=== PATIENT | female | born 1955 | race Caucasian/White ===

== ENCOUNTER 2020-03-23 08:47 | Inpatient (IN) | payer MEDICARE, OTHER ==
[2020-03-20 11:51] LABS: BASOPHILS % 0.7 % (0.0-1.0); EOSINOPHILS # (AUTO) 0.1 (0.0-0.4); EOSINOPHILS % 1.2 % (0.0-6.0); HEMATOCRIT 34.5 % (34.2-44.1); HEMOGLOBIN 10.7 g/dL (12.0-16.0); LYMPHOCYTES # (AUTO) 1.8 (1.0-3.2); LYMPHOCYTES % 29.9 % (18.0-39.1); MEAN CORPUSCULAR HEMOGLOBIN 26.2 pg (28-32); MEAN CORPUSCULAR VOLUME 84.6 fL (81-99); MONOCYTES # (AUTO) 0.4 (0.2-0.8); MONOCYTES % 7.5 % (4.4-11.3); NEUTROPHILS # (AUTO) 3.5 (2.1-6.9); NEUTROPHILS % 60.4 % (38.7-80.0); PLATELET COUNT 324 x10e3/uL (140-360); RED BLOOD COUNT 4.08 x10e6/uL (3.6-5.1); RED CELL DISTRIBUTION WIDTH 13.1 % (11.7-14.4)
--- NOTE | 2020-03-20 12:13 | Diagnostic Imaging Report ---
EXAM: CHEST 2 VIEWS DATE: 03/20/2020 11:23 AM INDICATION: Preoperative evaluation COMPARISON: None FINDINGS: The trachea is midline. The lungs are symmetrically expanded without evidence for large focal consolidation, pneumothorax, or significant pleural effusion. The cardiomediastinal silhouette and pulmonary vasculature are within normal limits. No acute osseous abnormality is identified. The surrounding soft tissues are unremarkable. IMPRESSION: No acute cardiopulmonary process identified. Signed by: Dr. Blaze Garcia MD on 03/20/2020 12:10 PM
[2020-03-20 12:30] LABS: ANION GAP 13.1 mmol/L (8-16); BLOOD UREA NITROGEN 18 mg/dL (7-26); BUN/CREATININE RATIO 23 (6-25); CALCIUM 9.4 mg/dL (8.4-10.2); CARBON DIOXIDE 29 mmol/L (22-29); CHLORIDE 99 mmol/L (98-107); CREATININE, SERUM 0.77 mg/dL (0.57-1.11); EST GLOMERULAR FILTRATION RATE > 60 ML/MIN (60-); GLUCOSE 157 mg/dL (74-118); POTASSIUM 3.1 mmol/L (3.5-5.1); SODIUM 138 mmol/L (136-145)
[~2020-03-23] VITALS: Ht 154.9 cm; Wt 59.4 kg
[2020-03-23] MEDS: DEXTROSE 5%/0.45% SOD CHL 1,000 ML IV SCH ×3 (02:13→21:14)
[~2020-03-23 08:47] MED LIST: DESOXIMETASONE60 G1 TOP; HYDROXYZINE HCL10 MG PO; LORAZEPAM PO; LOSARTAN-HCTZ1 EAC1 PO; METOPROLOL SUCC50 MG PO; NIFEDIPINE10 MG PO; OXCARBAZEPINE PO; PROTONIX20 MG PO; TRAZODONE HCL100 MG PO
--- OUTSIDE RECORDS SUMMARY | 2020-03-23 08:49 | XMS REPORT ---
Author Author GUERDA VALENZUELA Organization Unknown Address Unknown Phone Care Team Providers Care Telephone Clerks Supervisor Name Role Phone CARRIE VALENZUELA PP Unavailable Reason for Referral No Reason for Referral was given. History of Present Illness No HPI available. 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 (Active) * Evoxac 30 MG Oral Capsule; TAKE 1 CAPSULE 3 TIMES DAILY. (Active) * TraZODone HCl 150 MG Oral Tablet; TAKE 1 TABLET ONCE DAILY. (Active) * Caltrate 600+D TABS; TAKE 1 TABLET DAILY (Active) * Valsartan-Hydrochlorothiazide 160-12.5 MG Oral Tablet; TAKE 1 TABLET DAILY.; Start Date: 08/10/2013 (Active) * Folic Acid TABS (Active) * Vitamin B-12 TABS (Active) * NexIUM 40 MG Oral Packet; one daily (Active) * Amitriptyline HCl 25 MG Oral Tablet; TAKE 1 TABLET DAILY. (Active) Allergies and Adverse Reactions * Sulfa Drugs (Active) Past Medical History * History of Chronic Cough (786.2); (Resolved) * History of Multiple Sclerosis (340); (Resolved) * History of Hiatal Hernia (553.3); (Resolved) Procedures Procedure Procedure Date Date Completed Status Hysterectomy - - Resolved Cholecystectomy - - Resolved Immunization * Influenza - Administered on: 10/09/2012 * Tdap - Administered on: 06/15/2009 * Fluzone Intramuscular Injectable (Lot #: [id number]) - Administered on: 08/10/2013 Family History * Paternal history of Coronary Artery Disease (V17.49); (Active) * Maternal history of Cancer (Active) * Maternal history of Chronic Obstructive Pulmonary Disease (Active) Social History * Marital History - Currently (Active) * Never A Smoker (Active) * Never Drank Alcohol (Active) Advance Directives * No Advance Directives available. Encounters * AUDIT 08/11/2013
--- OUTSIDE RECORDS SUMMARY | 2020-03-23 08:49 | XMS REPORT ---
Author Author GUERDA Byrnes Organization Unknown Address Unknown Phone Care Team Providers Care Editing Computer Publisher Name Role Phone Esvin Byrnesjeromy PP Unavailable Reason for Referral No Reason for Referral was given. History of Present Illness No HPI available. 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.1); (Active) Medication * LORazepam 1 MG Oral [...] Tablet; TAKE 1 TABLET DAILY.; Start Date: 08/10/2013; End Date: (Active) * Folic Acid TABS (Active) * [...] 06/15/2009 * Fluzone Intramuscular Injectable (Lot #: [id number]) - Administered on: 08/10/2013 Family History * Paternal history of Coronary Artery Disease (V17.49); (Active) * Maternal history of Cancer (Active) * Maternal history of Chronic Obstructive Pulmonary Disease (Active) Social History * Marital History - Currently (Active) * Never A Smoker (Active) * Never Drank Alcohol (Active) Advance Directives * No Advance Directives available. Encounters * AUDIT 08/10/2013
--- OUTSIDE RECORDS SUMMARY | 2020-03-23 08:49 | XMS REPORT | Summary of Care ---
Author Author [facility] Organization [facility] Address Unknown Phone Unavailable Encounter SONIDO Colmenares(BERNIE) [id number] Date(s): 08/24/18 - 08/24/18 [facility] [address] [place] [address]- Discharge Disposition: Home or Self Care Attending Physician: Red Dhillon MD Referring Physician: Bartolo Chilel MD Vital Signs Most recent to 1 oldest [Reference Range]: Blood Pressure 131/75 mmHg [90-140/60-90 mmHg] (08/24/18 12:14 PM) Peripheral Pulse 63 bpm Rate [60-100 bpm] (08/24/18 12:14 PM) Weight 64.602 kg (08/24/18 12:14 PM) Problem List Condition Effective Dates Status Health Status Informan t Segura Resolved esophagus(Confirmed) Escherichia 01/12/16 Active coli(Confirmed)1, 2 History of Resolved hysterectomy(Confirm ed) H/O tubal Resolved ligation(Confirmed) High blood Active pressure(Confirmed) High Active cholesterol(Confirme d) Injury of Resolved gallbladder during surgery(Confirmed)3 Multiple Active sclerosis(Confirmed) 1urine, ESBL=, 01/12/16 2Problem added by Discern Expert. 3removal of gallbladder Allergies, Adverse Reactions, Alerts Substance Reaction Severity Status sulfa drugs Active gabapentin HALLUCINATIONS Severe Active Medications amitriptyline 25 mg oral tablet 25 mg = 1 tab, PO, Bedtime, # 90 tab, 3 Refill(s), Pharmacy: [facility] Start Date: 08/24/18 Stop Date: 08/19/19 Status: Ordered LORazepam 1 mg oral tablet 1 mg = 1 tab, PO, BID, PRN Anxiety, # 180 tab, 3 Refill(s) Start Date: 08/24/18 Stop Date: 11/25/18 Status: Discontinued losartan 100 mg oral tablet 100 mg = 1 tab, PO, Daily, 0 Refill(s) Start Date: 08/24/18 Status: Ordered OXcarbazepine 300 mg oral tablet 300 mg = 1 tab, PO, BID, # 180 tab, 3 Refill(s), Pharmacy: [facility] Start Date: 08/24/18 Stop Date: 08/19/19 Status: Ordered sucralfate 1 g oral tablet 1 gm = 1 tab, PO, QID-Before Meals, 0 Refill(s) Start Date: 08/24/18 Status: Ordered trazodone 150 mg oral tablet 150 mg = 1 tab, PO, Bedtime, # 30 tab, 3 Refill(s), Pharmacy: [facility] Start Date: 08/24/18 Stop Date: 12/22/18 Status: Ordered trazodone 150 mg oral tablet = 1 tab, PO, Bedtime, # 90 tab, 2 Refill(s), Pharmacy: [facility] Start Date: 12/16/18 Stop Date: 03/15/19 Status: Ordered Results No data available for this section Immunizations No data available for this section Procedures Procedure Date Related Diagnosis Body Site Status partial Hysterectomy1 Completed Cholecystectomy2 Completed Gallbladder operation3 Completed Tubal ligation4 Completed 1Partial 2in 1972 3in 1973 4in 1976 Social History Social History Type Response Substance Abuse Use: None. 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 Alcohol Never Smoking Status Never smoker; Lives with so meone who smokes; Cigarette Smoking Last 365 Days No; Reg Smoking Cessation Counseli ng No entered on: 08/24/18 Assessment and Plan No data available for this section
--- OUTSIDE RECORDS SUMMARY | 2020-03-23 08:49 | XMS REPORT | Summary of Care ---
Author Author [facility] Organization [facility] Address Unknown Phone Unavailable Encounter HQ Aleksandrantr_nicole(FIN) [id number] Date(s): 07/26/19 - 07/26/19 [facility] [address] [place] [address]- Discharge Disposition: Home or Self Care Attending Physician: Red Dhillon MD Vital Signs No data available for this section Problem List Condition Effective Dates Status Health [...] drugs Active gabapentin HALLUCINATIONS Severe Active Medications No data available for this section Results No data available for this section Immunizations No data available for this section Procedures Procedure Date Related Diagnosis Body Site Status partial Hysterectomy1 Completed Cholecystectomy2 Completed Gallbladder operation3 Completed Tubal ligation4 Completed 1Partial 2in 1973 3in 1973 4in 1976 Social History Social History Type Response Alcohol Never 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 Substance Abuse Use: None. Smoking Status Never smoker; Lives with so meone who smokes; Cigarette Smoking Last 365 Days No; Reg Smoking Cessation Counseli ng No entered on: 08/24/18 Assessment and Plan No data available for this section
--- OUTSIDE RECORDS SUMMARY | 2020-03-23 08:49 | XMS REPORT ---
Author Author GUERDA VALENZUELA Organization Unknown Address Unknown Phone Care Team Providers Care Insecticide Expert Name Role Phone CARRIE VALENZUELA PP Reason for Referral No Reason for Referral was given. History of Present Illness No HPI available. Problems * Normal Routine History And Physical Adult (V70.0); (Active) * Benign Essential Hypertension (401.1); (Active) Medication * Diovan 160 MG Oral Tablet; TAKE 1 TABLET DAILY. pt overdue for f/u ov - interim r/f.; Start Date: 07/01/2013; End Date: (Active) Allergies and Adverse Reactions * Not Known Past Medical History * No Significant Medical History Advance Directives * No Advance Directives available. Encounters * AUDIT 07/01/2013
--- OUTSIDE RECORDS SUMMARY | 2020-03-23 08:49 | XMS REPORT | Continuity of Care Document ---
Author Author [employer] Organization [employer] Address Unknown Phone Unavailable Care Team Providers [employer] Service Team Member Name Role Phone [email or web address] Information KBLE Unavailable Un available Problems Problem Status Onset Date Classification Date Reported Comments Source Escherichia coli (organism) Ac tive 01/12/2016 Problem 01/28/2020 urine, ESBL=, 01/12/16 Problem added by Discern Expert. 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 [facility] Segura's esophagus (disorder) Resolved Problem [facility] History of - hysterectomy (context-dependent category) Resolved Problem 01/28/2020 [facility] History of - tubal ligation (context-dep endent category) Resolved Pr oblem 01/28/2020 [facility] Hypertensive disorder, systemic arterial (disorder) Active Problem 01/28/2020 [facility] Hypercholesterolemia (disorder) Active Problem [facility] Injury of gallbladder during surgery (disorder) Resolved Problem 01/28/2020 removal of gallblad panfilo [facility] Multiple sclerosis (disorder) Active Problem [facility] HYPO-OSMOLALITY AND HYPONATREMIA Active [facility] Medications Medication Details Route Status Patient Instructions Ordering Provider Order Date Source trazodone 150 mg oral tablet = 1 tab, PO, Bedtime, # 90 tab, 2 Refill(s), Pharmacy: [facility] Active 12/16/2018 [facility] Lorazepam 1 MG Oral Tablet 1 m g = 1 tab, PO, BID, PRN Anxiety, # 180 tab, 0 Refill(s), called to pharmacy Active 11/25/2018 [facility] OXcarbazepine 300 mg oral tablet 300 mg = 1 tab, PO, BID, # 180 tab, 3 Refill(s), Pharmacy: [facility] Active 08/24/2018 [facility] amitriptyline 25 mg oral tablet 25 mg = 1 tab, PO, Bedtime, # 90 tab, 3 Refill(s), Pharmacy: [facility] Active 08/24/2018 [facility] Lorazepam 1 MG Oral Tablet 1 m g = 1 tab, PO, BID, PRN Anxiety, # 180 tab, 3 Refill(s) No Longer Active 08/24/2018 [facility] trazodone 150 mg oral tablet 1 50 mg = 1 tab, PO, Bedtime, # 30 tab, 3 Refill(s), Pharmacy: [facility] Active 08/24/2018 [facility] sucralfate 1 g oral tablet 1 g m = 1 tab, PO, QID-Before Meals, 0 Refill(s) Active 08/24/2018 [facility] losartan 100 mg oral tablet 10 0 mg = 1 tab, PO, Daily, 0 Refill(s) Active 08/24/2018 [facility] Lorazepam 1 MG Oral Tablet 1 m g = 1 tab, PO, BID, PRN Anxiety, # 90 tab, 0 Refill(s) No Longer Active 06/09/2018 [facility] Lorazepam 1 MG Oral Tablet 1 m g = 1 tab, PO, BID, PRN Anxiety, X 90 day, # 90 tab, 3 Refill(s) Active 03/09/2018 [facility] Trazodone Hydrochloride 50 MG Oral Tablet 100 mg = 2 tab, PO, Bedtime, # 180 tab, 3 Refill(s), Pharmacy: [facility] Active 03/09/2018 [facility] amitriptyline 25 mg oral tablet 25 mg = 1 tab, PO, Bedtime, # 90 tab, 3 Refill(s), Pharmacy: [facility] Active 03/09/2018 [facility] OXcarbazepine 300 mg oral tablet 300 mg = 1 tab, PO, BID, # 180 tab, 3 Refill(s), Pharmacy: [facility] Active 03/09/2018 [facility] Trazodone Hydrochloride 50 MG Oral Tablet See Instructions, # 270 tab, TAKE 3 TABLETS AT BEDTIME, Pharmacy: [facility] No Longer Active 01/22/2018 [facility] Trazodone Hydrochloride 50 MG Oral Tablet 150 mg = 3 tab, PO, Bedtime, # 270 tab, 0 Refill(s), Pharmacy: [facility] [id number] No Longer Active 01/06/2018 [facility] Clonidine Hydrochloride 0.1 MG Oral Tablet 0.1 mg, Route: PO, Drug form: TAB, ONCE, Dosing Weight 66.818, kg, Priority: STAT, Start date: 01/18/16 19:29:00, Stop date: 01/18/16 19:29:00 Inactive 01/19/2016 [facility] Tylenol 650 mg, Route: PO, King g form: TAB, ONCE, Dosing Weight 66.818, kg, Priority: STAT, Start date: 01/18/16 18:48:00, Stop date: 01/18/16 18:48:00 Inactive 01/19/2016 [facility] valsartan 160 mg oral tablet 1 60 mg = 1 tab, PO, Daily, # 30 tab, 0 Refill(s) Active 01/17/2016 [facility] doxycycline hyclate 100 mg oral tablet 100 mg = 1 tab, PO, [id number], # 14 tab, 0 Refill(s) No Longer Active 01/17/2016 [facility] Doxycycline Notes: NO MILK/ANT ACIDS/IRON Take 1 hour before or 2 hours after dairy products Inactive 01/17/2016 [facility] normal saline 0.9% IV 1,000 mL 1,000 mL, Rate: 50 ml/hr, Infuse over: 20 hr, Route: IV, Dosing Weight 66.818 kg, Total Volume: 1,000, Start date: 01/16/16 20:25:00, Duration: 30 day, Stop date: 02/15/16 20:24:00 No Longer Active 01/17/2016 [facility] Invanz Notes: (Same as: Guy ) Refrigerate. NOT COMPATIBLE WITH D5W. Stable in refrigerator for 24 hours MEDICATION WASTE Product Size: 1000 mg Product Wasted: ___ mg No Longer Active 01/16/2016 [facility] potassium chloride Notes: (Rodo e as: K-Dur 20) "Do Not Crush" With food and full glass of water Inactive 01/16/2016 [facility] Albuterol 0.833 MG/ML / Ipratropium Brom collin 0.167 MG/ML Inhalant Solution [DuoNeb] Notes: (Same as: Duoneb) No Longer Active 01/16/2016 [facility] Rocephin Notes: (Same As: Florencio phin). Use with 100 mL NS and infuse over 30 min MEDICATION WASTE Product Size: 1000 mg Product Wasted: ___ mg No Longer Active 01/15/2016 [facility] 24 HR Metoprolol Tartrate 50 MG Extended Release Tablet [Toprol] Notes: (Same as: Lopressor) No Longer Active 01/14/2016 [facility] valsartan Notes: Same as Diovan No Longer Active 01/14/2016 [facility] Hydrochlorothiazide 25 MG / valsartan 16 0 MG Oral Tablet 1 tab, Route: PO, Drug Form: TAB, Dosing Weight 66.818, kg, Daily, Start date: 01/14/16 9:00:00, Duration: 30 day, Stop date: 02/12/16 9:00:00 No Longer Active 01/14/2016 [facility] Zetia Notes: (Same as: Zetia) No Longer Active 01/14/2016 [facility] Folic Acid 0.4 mg, 1 tab, Rout e: PO, Drug form: TAB, Daily, Dosing Weight 66.818, kg, Start date: 01/14/16 9:00:00, Duration: 30 day, Stop date: 02/12/16 9:00:00 N o Longer Active 01/14/2016 [facility] Vitamin B12 Notes: (Same As: V itamin B12) No Longer Active 01/14/2016 [facility] calcium-vitamin D 600 mg-200 units oral tablet Notes: (Same As: Gurpreet-D, OsCal-D, Oyster Calcium) No Longer Active 01/14/2016 [facility] Amoxicillin 875 MG / Clavulanate 125 MG Oral Tablet [Augmentin 875-mg] 1 tab, Route: PO, Drug Form: TAB, Dosing Weight 66.818, kg, Q12H, Pt.'s home Meds, Start date: 01/13/16 21:00:00, Duration: 30 day, Stop date: 02/12/16 9:00:00 Inactive 01/14/2016 [facility] Augmentin 875mg Tablet Augment in 875mg Tablet, 1 tab, Drug form: MISC, Route: PO, Q12H, 01/13/16 21:00:00, Duration: 30 day, Stop date: 02/12/16 9:00:00 No Longer Active 01/14/2016 [facility] Trazodone Hydrochloride 50 MG Oral Tablet Notes: (Same As: Desyrel) No Longer Active 01/14/2016 [facility] Pepcid Notes: (Same as: Pepcid) No Longer Active 01/13/2016 [facility] Ranitidine 150 MG Oral Tablet 150 mg, 1 tab, Route: PO, Drug form: TAB, BID, Dosing Weight 66.818, kg, Start date: 01/13/16 17:00:00, Duration: 30 day, Stop date: 02/12/16 9:00:00 Inactive 01/13/2016 [facility] pantoprazole Notes: Tablet vero uld not be chewed or crushed. (Same as: Protonix) N o Longer Active 01/13/2016 [facility] Trileptal Notes: Do not crush or chew. (Same as: Trileptal) No Longer Active 01/13/2016 [facility] Lorazepam Notes: (Same as: Ati van) No Longer Active 01/13/2016 [facility] Amitriptyline Notes: (Same as: Elavil) No Longer Active 01/13/2016 [facility] 24 HR Metoprolol Tartrate 50 MG Extended Release Tablet [Toprol] Notes: (Same as: Lopressor) No Longer Active 01/13/2016 [facility] potassium chloride Notes: (Rodo e as: K-Dur 20) "Do Not Crush" With food and full glass of water Inactive 01/13/2016 [facility] Tylenol Notes: Do not exceed 4 gm/day. (Same as: Tylenol) No Longer Active 01/13/2016 [facility] Saline Flush 0.9% Notes: (Same as: BD Posiflush) No Longer Active 01/13/2016 [facility] Sodium Chloride 0.154 MEQ/ML Injectable Solution 1,000 mL, Rate: 75 ml/hr, Infuse over: 13.3 hr, Route: IV, Dosing Weight 66.818 kg, Total Volume: 1,000, Start date: 01/12/16 21:35:00, Stop date: 02/11/16 21:34:00 No Longer Active 01/13/2016 [facility] Sodium Chloride 0.154 MEQ/ML Injectable Solution 1,000 mL, 1,000 ml/hr, Infuse Over: 1 hr, Route: IV, ONCE, Priority: STAT, Dosing Weight 66.818 kg, Start date: 01/12/16 18:21:00, Duration: 1 doses or times, Stop date: 01/12/16 18:21:00 Inactive 01/13/2016 [facility] Zofran Notes: (Same as: Kimi ) MEDICATION WASTE Product Size: 4 mg Product Wasted: ___ mg Inactive 01/12/2016 [facility] Sodium Chloride 0.154 MEQ/ML Injectable Solution 1,000 mL, 1,000 ml/hr, Infuse Over: 1 hr, Route: IV, 1,000, Drug form: INJ, ONCE, Priority: STAT, Dosing Weight 66.818 kg, Start date: 01/12/16 14:30:00, Duration: 1 doses or times, Stop date: 01/12/16 14:30:00 Inactive 01/12/2016 [facility] metoprolol extended release No david: (Same as: Toprol XL) May split tab, but do not crush. Inactive 10/04/2014 [facility] Lorazepam Notes: (Same as: Siddharth valenzuela) Inactive 10/04/2014 [facility] Hydrochlorothiazide 25 MG / valsartan 16 0 MG Oral Tablet 1 tab, Route: PO, Drug Form: TAB, Dosing Weight 59.091, kg, Daily, Start date: 10/04/14 9:00:00, Duration: 30 day, Stop date: 11/02/14 9:00:00 No Longer Active 10/04/2014 [facility] Folic Acid 0.4 mg, 1 tab, Rout e: PO, Drug form: TAB, Daily, Dosing Weight 59.091, kg, Start date: 10/04/14 9:00:00, Duration: 30 day, Stop date: 11/02/14 9:00:00 Inactive 10/04/2014 [facility] Zetia Notes: (Same as: Zetia) Inactive 10/04/2014 [facility] Pepcid Notes: (Same as: Pepcid) Inactive 10/04/2014 [facility] hydrochlorothiazide 25 mg oral tablet Notes: (Same as: Hydrodiuril) With food. Inactive 10/04/2014 [facility] Diovan Notes: Same as Diovan Inactive 10/04/2014 [facility] Ranitidine 150 MG Oral Tablet 150 mg, 1 tab, Route: PO, Drug form: TAB, BID, Dosing Weight 59.091, kg, Start date: 10/04/14 9:00:00, Duration: 30 day, Stop date: 11/02/14 17:00:00 No Longer Active 10/04/2014 [facility] Trileptal Notes: Do not crush or chew. (Same as: Trileptal) Inactive 10/04/2014 [facility] pantoprazole Notes: Tablet vero uld not be chewed or crushed. (Same as: Protonix) Inactive 10/04/2014 [facility] nitroglycerin 0.4 mg sublingual tablet Notes: (Same as:Nitroquick, Nitrostat) "Do Not Crush" Sublingual tablet No Longer Active 10/04/2014 [facility] atropine 0.5 mg, 5 mL, Route: IVP, Drug form: INJ, PRN, PRN Bradycardia, Start date: 10/03/14 22:14:00, Duration: 30 day, Stop date: 11/02/14 22:13:00 No Longer Active 10/04/2014 [facility] Ondansetron Notes: (Same as: True red) No Longer Active 10/04/2014 [facility] Amitriptyline Notes: (Same as: Elavil) No Longer Active 10/04/2014 [facility] Trazodone Hydrochloride 50 MG Oral Tablet Notes: (Same As: Desyrel) No Longer Active 10/04/2014 [facility] Restoril Notes: (Same As: Rest oril) No Longer Active 10/04/2014 [facility] Tylenol Notes: Do not exceed 4 gm/day. (Same as: Tylenol) No Longer Active 10/04/2014 [facility] Ambien 5 mg, Route: PO, Bedtim e, Dosing Weight 59.091, kg, PRN Insomnia, Start date: 10/03/14 19:38:00, Duration: 30 day, Stop date: 11/02/14 19:37:00 Inactive 10/04/2014 [facility] ezetimibe 10 MG Oral Tablet [Zetia] 10 mg = 1 tab, PO, Daily Active 10/04/2014 [facility] Calcium Carbonate 1500 MG / Cholecalcife rol 800 UNT Oral Tablet [Caltrate Plus D 600/800] 1 tab, PO, Daily Active 10/04/2014 [facility] folic acid 0.4 mg oral tablet 0.4 mg = 1 tab, PO, Daily Active 10/04/2014 [facility] Vitamin B12 500 mcg oral tablet 500 microgram = 1 tab, PO, Daily Active 10/04/2014 [facility] Ranitidine 150 MG Oral Tablet 150 mg = 1 tab, PO, BID Active 10/04/2014 [facility] pantoprazole 40 mg oral enteric coated tablet 40 mg = 1 tab, PO, BID Active 10/04/2014 [facility] metoprolol 50 mg oral tablet, extended release 50 mg = 1 tab, PO, Bedtime Active 10/04/2014 [facility] Hydrochlorothiazide 25 MG / valsartan 16 0 MG Oral Tablet 1 tab, PO, Daily Active 10/04/2014 [facility] Trazodone Hydrochloride 50 MG Oral Tablet 150 mg = 3 tab, PO, Bedtime Active 10/04/2014 [facility] oxcarbazepine 300 MG Oral Tablet [Trileptal] 300 mg = 1 tab, PO, BID Active 10/04/2014 [facility] amitriptyline 25 mg oral tablet 25 mg = 1 tab, PO, Bedtime Active 10/04/2014 [facility] LORazepam 1 mg oral tablet 1 m g = 1 tab, PO, BID Active 10/04/2014 [facility] aspirin 324 mg, Route: CHEW, D rug form: CHEWTAB, ONCE, Dosing Weight 59.091, kg, Priority: STAT, Start date: 10/03/14 18:34:00, Stop date: 10/03/14 18:34:00 Inactive 10/04/2014 [facility] Valsartan-Hydrochlorothiazide 160-25 MG Oral Tablet ; Start Date: 08/10/2013; End Date: (Active) Active 08/10/2013 [facility] Valsartan-Hydrochlorothiazide 160-12.5 MG Oral Tablet ; Start Date: 08/10/2013 (Active) Active 08/10/2013 [facility] Diovan 160 MG Oral Tablet ; St art Date: 07/01/2013; End Date: (Active) Active 07/01/2013 [facility] LORazepam 1 MG Oral Tablet (A ctive) Active [facility] Trileptal 300 MG Oral Tablet (Active) Active [facility] Evoxac 30 MG Oral Capsule (Ac tive) Active [facility] TraZODone HCl 150 MG Oral Tablet (Active) Active [facility] Caltrate 600+D TABS (Active) Active [facility] Folic Acid TABS (Active) Active [facility] Vitamin B-12 TABS (Active) Active [facility] NexIUM 40 MG Oral Packet (Act ramakrishna) Active [facility] Amitriptyline HCl 25 MG Oral Tablet (Active) Active [facility] Allergies, Adverse Reactions, Alerts Substance Category Reaction Severity Reaction type Status Date Reported Comments Source gabapentin Assertion HALLUCINATIONS Severe Propensity to adverse reactions to drug Active 02/05/2017 [facility] Not Known [facility] Sulfa Drugs drug allergy drug allergy Active [facility] sulfa drugs Assertion Drug allergy Active [facility] Immunizations Immunization Date Given Site Status Last Updated Comments Source Fluzone Intramuscular Injectable 08/10/2013 completed [facility] Influenza 10/09/2012 completed [facility] Tdap 06/15/2009 completed [facility] Results Order Name Results Value Reference Range Date Interpretation Comments Source CHEM PANEL Creatinine Lvl 0.55 0.50 - 1.40 01/15/2016 [facility] CHEM PANEL Potassium Lvl 3.3 3.5 - 5.1 01/15/2016 [facility] CHEM PANEL Sodium Lvl 134 135 - 145 01/15/2016 [facility] CHEM PANEL Glucose Lvl 137 70 - 99 01/15/2016 [facility] CHEM PANEL BUN 7 7 - 22 01/15/2016 [facility] CHEM PANEL Calcium Lvl 8.1 8.5 - 10.5 01/15/2016 [facility] CHEM PANEL CO2 27 24 - 32 01/15/2016 [facility] CHEM PANEL Chloride Lvl 98 95 - 109 01/15/2016 [facility] CHEM PANEL eGFR 102 01/15/2016 Result Comment: The eGFR is calculated using the CKD-EPI formula. In most young, healthy individuals the eGFR will be >90 mL/min/1.73m2. The eGFR declines with age. An eGFR of 60-89 may be normal in some populations, particularly the elderly, for whom the CKD-EPI formula has not been extensively validated. Use of the eGFR is not recommended in the following populations:

Individuals with unstable creatinine concentrations, including patients and those with serious co-morbid conditions.

Patients with extremes in muscle mass or diet.

The data above are obtained from the National Kidney Disease Education Program (NKDEP) which additionally recommends that when the eGFR is used in patients with extremes of body mass index for purposes of drug dosing, the eGFR should be multiplied by the estimated BMI. [facility] CHEM PANEL AGAP 12.3 10.0 - 20.0 01/15/2016 [facility] HEMATOLOGY Monocytes # 0.3 0.0 - 0.8 01/15/2016 [facility] HEMATOLOGY Monocytes 13.6 2.0 - 12.0 01/15/2016 [facility] Lymphocytes 40.3 20.0 - 40.0 01/15/2016 [facility] Segs-Bands # 1.0 1.5 - 8.1 01/15/2016 [facility] Segs 44.0 45.0 - 75.0 01/15/2016 [facility] HEMATOLOGY Basophils 0.9 0.0 - 1.0 01/15/2016 [facility] Eosinophils 1.2 0.0 - 4.0 01/15/2016 [facility] Lymphocytes # 0.9 1.0 - 5.5 01/15/2016 [facility] RDW 13.9 11.5 - 14.5 01/15/2016 [facility] Platelet 184 133 - 450 01/15/2016 [facility] MPV 7.5 7.4 - 10.4 01/15/2016 [facility] RBC 3.69 4.20 - 5.40 01/15/2016 [facility] WBC 2.3 3.7 - 10.4 01/15/2016 [facility] Hct 31.3 36.0 - 48.0 01/15/2016 [facility] Hgb 10.1 12.0 - 16.0 01/15/2016 [facility] MCV 84.7 80.0 - 98.0 01/15/2016 [facility] MCHC 32.4 32.0 - 36.0 01/15/2016 [facility] MCH 27.4 27.0 - 31.0 01/15/2016 [facility] URINE CHEM U Osmolality 162 300 - 800 01/14/2016 [facility] URINE CHEM U Sodium 46 01/14/2016 [facility] URINE CHEM U Creatinine 15.70 01/14/2016 [facility] VIRAL - SEROLOGY Influ A Negative (01/14/16 10:51 AM) Negative 01/14/2016 [facility] VIRAL - SEROLOGY Influ B Negative (01/14/16 10:51 AM) Negative 01/14/2016 [facility] MOLECULAR DIAGNOSTIC C difficile DNA Negative (01/14/16 10:34 AM) Negative 01/14/2016 [facility] URINE AND STOOL Fecal Leukocyte None Seen (01/14/16 10:34 AM) 01/14/2016 [facility] URINE AND STOOL Occult Bld Stl Negative 1 (01/14/16 10:34 AM) Negative 01/14/2016 Result Comment: Called [facility] [employer] at 01/14/2016 11:18. Initially put in positive when should have hit negative.
ka [facility] CARDIAC ENZYMES Troponin-I 0.03 0.00 - 0.40 01/14/2016 [facility] CHEM PANEL A/G Ratio 1.2 0.7 - 1.6 01/14/2016 [facility] CHEM PANEL AST 15 0 - 37 01/14/2016 [facility] CHEM PANEL ALT 18 0 - 65 01/14/2016 [facility] CHEM PANEL Calcium Lvl 7.6 8.5 - 10.5 01/14/2016 [facility] CHEM PANEL B/C Ratio 13 6 - 25 01/14/2016 [facility] CHEM PANEL Albumin Lvl 3.0 3.5 - 5.0 01/14/2016 [facility] CHEM PANEL Total Protein 5.6 6.4 - 8.4 01/14/2016 [facility] CHEM PANEL Globulin 2.6 2.0 - 4.0 01/14/2016 [facility] CHEM PANEL eGFR 108 01/14/2016 Result Comment: The eGFR is calculated using the CKD-EPI formula. In most young, healthy individuals the eGFR will be >90 mL/min/1.73m2. The eGFR declines with age. An eGFR of 60-89 may be normal in some populations, particularly the elderly, for whom the CKD-EPI formula has not been extensively validated. Use of the eGFR is not recommended in the following populations:

Individuals with unstable creatinine concentrations, including patients and those with serious co-morbid conditions.

Patients with extremes in muscle mass or diet.

The data above are obtained from the National Kidney Disease Education Program (NKDEP) which additionally recommends that when the eGFR is used in patients with extremes of body mass index for purposes of drug dosing, the eGFR should be multiplied by the estimated BMI. [facility] CHEM PANEL Alk Phos 48 39 - 136 01/14/2016 [facility] CHEM PANEL Bili Total 0.7 0.2 - 1.3 01/14/2016 [facility] CHEM PANEL Chloride Lvl 95 95 - 109 01/14/2016 [facility] CHEM PANEL CO2 28 24 - 32 01/14/2016 [facility] CHEM PANEL AGAP 10.4 10.0 - 20.0 01/14/2016 [facility] CHEM PANEL Sodium Lvl 130 135 - 145 01/14/2016 [facility] CHEM PANEL Potassium Lvl 3.4 3.5 - 5.1 01/14/2016 [facility] CHEM PANEL Glucose Lvl 89 70 - 99 01/14/2016 [facility] CHEM PANEL BUN 6 7 - 22 01/14/2016 [facility] CHEM PANEL Creatinine Lvl 0.46 0.50 - 1.40 01/14/2016 [facility] HEMATOLOGY RDW 13.6 11.5 - 14.5 01/14/2016 [facility] HEMATOLOGY MPV 7.9 7.4 - 10.4 01/14/2016 [facility] Platelet 162 133 - 450 01/14/2016 [facility] RBC 3.27 4.20 - 5.40 01/14/2016 [facility] WBC 2.0 3.7 - 10.4 01/14/2016 [facility] Hct 27.4 36.0 - 48.0 01/14/2016 [facility] Hgb 9.1 12.0 - 16.0 01/14/2016 [facility] MCV 83.8 80.0 - 98.0 01/14/2016 [facility] MCHC 33.3 32.0 - 36.0 01/14/2016 [facility] MCH 27.9 27.0 - 31.0 01/14/2016 [facility] Eosinophils 0.2 0.0 - 4.0 01/14/2016 [facility] Segs-Bands # 0.7 1.5 - 8.1 01/14/2016 [facility] HEMATOLOGY Basophils 0.8 0.0 - 1.0 01/14/2016 [facility] Lymphocytes # 0.7 1.0 - 5.5 01/14/2016 [facility] Monocytes # 0.5 0.0 - 0.8 01/14/2016 [facility] HEMATOLOGY Monocytes 26.0 2.0 - 12.0 01/14/2016 [facility] HEMATOLOGY Lymphocytes 36.0 20.0 - 40.0 01/14/2016 [facility] HEMATOLOGY Segs 37.0 45.0 - 75.0 01/14/2016 [facility] HEMATOLOGY Plt Morph Dayanara l (01/14/16 4:02 AM) 01/14/2016 [facility] HEMATOLOGY RBC Morph Dayanara l (01/14/16 4:02 AM) 01/14/2016 [facility] CARDIAC ENZYMES Troponin-I 0.03 0.00 - 0.40 01/14/2016 [facility] CARDIAC ENZYMES Troponin-I <0.02 0.00 - 0.40 01/13/2016 [facility] CHEM PANEL eGFR 102 01/13/2016 Result Comment: The eGFR is calculated using the CKD-EPI formula. In most young, healthy individuals the eGFR will be >90 mL/min/1.73m2. The eGFR declines with age. An eGFR of 60-89 may be normal in some populations, particularly the elderly, for whom the CKD-EPI formula has not been extensively validated. Use of the eGFR is not recommended in the following populations:

Individuals with unstable creatinine concentrations, including patients and those with serious co-morbid conditions.

Patients with extremes in muscle mass or diet.

The data above are obtained from the National Kidney Disease Education Program (NKDEP) which additionally recommends that when the eGFR is used in patients with extremes of body mass index for purposes of drug dosing, the eGFR should be multiplied by the estimated BMI. [facility] CHEM PANEL A/G Ratio 1.1 0.7 - 1.6 01/13/2016 [facility] CHEM PANEL Globulin 2.8 2.0 - 4.0 01/13/2016 [facility] CHEM PANEL AGAP 11.3 10.0 - 20.0 01/13/2016 [facility] CHEM PANEL B/C Ratio 15 6 - 25 01/13/2016 [facility] CHEM PANEL Alk Phos 56 39 - 136 01/13/2016 [facility] CHEM PANEL AST 16 0 - 37 01/13/2016 [facility] CHEM PANEL Bili Total 0.2 0.2 - 1.3 01/13/2016 [facility] CHEM PANEL Albumin Lvl 3.2 3.5 - 5.0 01/13/2016 [facility] CHEM PANEL ALT 22 0 - 65 01/13/2016 [facility] CHEM PANEL Calcium Lvl 7.6 8.5 - 10.5 01/13/2016 [facility] CHEM PANEL Total Protein 6.0 6.4 - 8.4 01/13/2016 [facility] CHEM PANEL CO2 27 24 - 32 01/13/2016 [facility] CHEM PANEL Chloride Lvl 91 95 - 109 01/13/2016 [facility] CHEM PANEL BUN 8 7 - 22 01/13/2016 [facility] CHEM PANEL Potassium Lvl 3.3 3.5 - 5.1 01/13/2016 [facility] CHEM PANEL Sodium Lvl 126 135 - 145 01/13/2016 [facility] CHEM PANEL Creatinine Lvl 0.54 0.50 - 1.40 01/13/2016 [facility] CHEM PANEL Glucose Lvl 102 70 - 99 01/13/2016 [facility] CHEM PANEL Magnesium Lvl 2.0 1.8 - 2.4 01/13/2016 [facility] CHEM PANEL Phosphorus 2.8 2.5 - 4.5 01/13/2016 [facility] CHEM PANEL Magnesium Lvl 1.7 1.8 - 2.4 01/13/2016 [facility] CHEM PANEL Osmolality 255 280 - 300 01/13/2016 [facility] CHEM PANEL Lipase Lvl 87 73 - 393 01/12/2016 [facility] CHEM PANEL A/G Ratio 1.2 0.7 - 1.6 01/12/2016 [facility] CHEM PANEL Globulin 3.3 2.0 - 4.0 01/12/2016 [facility] CHEM PANEL B/C Ratio 12 6 - 25 01/12/2016 [facility] CHEM PANEL Bili Total 0.3 0.2 - 1.3 01/12/2016 [facility] CHEM PANEL AST 15 0 - 37 01/12/2016 [facility] CHEM PANEL ALT 23 0 - 65 01/12/2016 [facility] CHEM PANEL Alk Phos 65 39 - 136 01/12/2016 [facility] CHEM PANEL Total Protein 7.4 6.4 - 8.4 01/12/2016 [facility] CHEM PANEL Albumin Lvl 4.1 3.5 - 5.0 01/12/2016 [facility] HEMATOLOGY Lymphocytes # 0.2 1.0 - 5.5 01/12/2016 [facility] HEMATOLOGY Segs-Bands # 4.0 1.5 - 8.1 01/12/2016 [facility] HEMATOLOGY Monocytes # 0.6 0.0 - 0.8 01/12/2016 [facility] HEMATOLOGY Basophils 0.9 0.0 - 1.0 01/12/2016 [facility] HEMATOLOGY Eosinophils 1.0 0.0 - 4.0 01/12/2016 [facility] HEMATOLOGY Segs 81.4 45.0 - 75.0 01/12/2016 [facility] HEMATOLOGY Monocytes 12.3 2.0 - 12.0 01/12/2016 [facility] HEMATOLOGY Lymphocytes 4.4 20.0 - 40.0 01/12/2016 [facility] HEMATOLOGY RDW 13.6 11.5 - 14.5 01/12/2016 [facility] MCV 82.6 80.0 - 98.0 01/12/2016 [facility] MCHC 33.3 32.0 - 36.0 01/12/2016 [facility] MCH 27.5 27.0 - 31.0 01/12/2016 [facility] RBC 4.13 4.20 - 5.40 01/12/2016 [facility] WBC 4.9 3.7 - 10.4 01/12/2016 [facility] Hgb 11.4 12.0 - 16.0 01/12/2016 [facility] MPV 7.6 7.4 - 10.4 01/12/2016 [facility] Platelet 256 133 - 450 01/12/2016 [facility] Hct 34.1 36.0 - 48.0 01/12/2016 [facility] URINE AND STOOL UA Urobilinogen <=1.0 mg/dL 0.1 - 1.0 01/12/2016 [facility] URINE AND STOOL UA Color Ltyellow 01/12/2016 [facility] URINE AND STOOL UA Nitrite Negative (01/12/16 3:38 PM) Negative 01/12/2016 [facility] URINE AND STOOL UA Blood Negative (01/12/16 3:38 PM) Negative 01/12/2016 [facility] URINE AND STOOL UA Bili Negative *NA* (01/12/16 3:38 PM) Negative 01/12/2016 [facility] URINE AND STOOL UA Sq Epi Occasional /LPF Few /LPF 01/12/2016 [facility] URINE AND STOOL UA Leuk Est Trace *ABN* (01/12/16 3:38 PM) Negative 01/12/2016 [facility] URINE AND STOOL UA RBC 7 0 - 2 01/12/2016 [facility] URINE AND STOOL UA WBC 3 0 - 5 01/12/2016 [facility] URINE AND STOOL UA Mucus Few /LPF None Seen /LPF 01/12/2016 [facility] URINE AND STOOL UA Turbidity Clear (01/12/16 3:38 PM) Clear 01/12/2016 [facility] URINE AND STOOL UA Spec Grav 1.018 <=1.030 01/12/2016 [facility] URINE AND STOOL UA Protein Negative mg/dL Negative mg/dL 01/12/2016 [facility] URINE AND STOOL UA pH 6.0 5.0 - 8.0 01/12/2016 [facility] URINE AND STOOL UA Ketones Negative mg/dL Negative mg/dL 01/12/2016 [facility] URINE AND STOOL UA Glucose Negative mg/dL Negative mg/dL 01/12/[address] [facility] [address] CARDIAC ENZYMES Total CK 58 12 - 191 10/04/2014 [facility] CARDIAC ENZYMES Troponin-I <0.02 0.00 - 0.40 10/04/2014 [facility] CHEM PANEL eGFR 94 10/04/2014 <sup>1</sup>Result Comment: The eGFR is calculated using the CKD-EPI formula. In most young, healthy individuals the eGFR will be >90 mL/min/1.73m2. The eGFR declines with age. An eGFR of 60-89 may be normal in some populations, particularly the elderly, for whom the CKD-EPI formula has not been extensively validated. Use of the eGFR is not recommended in the following populations:& lt;br/>
Individuals with unstable creatinine concentrations, including patients and those with serious co-morbid conditions.

Patients with extremes in muscle mass or diet.

The data above are obtained from the National Kidney Disease Education Program (NKDEP) which additionally recommends that when the eGFR is used in patients with extremes of body mass index for purposes of drug dosing, the eGFR should be multiplied by the estimated BMI. [facility] CHEM PANEL Albumin Lvl 3.4 3.5 - 5.0 10/04/2014 [facility] CHEM PANEL Globulin 2.8 2.0 - 4.0 10/04/2014 [facility] CHEM PANEL A/G Ratio 1.2 0.7 - 1.6 10/04/2014 [facility] CHEM PANEL Total Protein 6.2 6.4 - 8.4 10/04/2014 [facility] CHEM PANEL Glucose Lvl 99 70 - 99 10/04/2014 <sup>3</sup>Interpretive Data: Adult ref erence range values reflect the clinical guidelines
of the [place] [employer]. [facility] CHEM PANEL BUN 22 7 - 22 10/04/2014 [facility] CHEM PANEL Alk Phos 66 39 - 136 10/04/2014 [facility] CHEM PANEL Bili Total 0.2 0.2 - 1.3 10/04/2014 [facility] CHEM PANEL ALT 22 0 - 65 10/04/2014 [facility] CHEM PANEL AST 8 0 - 37 10/04/2014 [facility] CHEM PANEL CO2 31 24 - 32 10/04/2014 [facility] CHEM PANEL AGAP 10.9 10.0 - 20.0 10/04/2014 [facility] CHEM PANEL Calcium Lvl 8.4 8.5 - 10.5 10/04/2014 [facility] CHEM PANEL B/C Ratio 31 6 - 25 10/04/2014 [facility] CHEM PANEL Creatinine Lvl 0.7 0.5 - 1.4 10/04/2014 [facility] CHEM PANEL Sodium Lvl 136 135 - 145 10/04/2014 [facility] CHEM PANEL Chloride Lvl 98 95 - 109 10/04/2014 [facility] CHEM PANEL Potassium Lvl 3.9 3.5 - 5.1 10/04/2014 [facility] HEMATOLOGY MPV 7.6 7.4 - 10.4 10/04/2014 [facility] HEMATOLOGY MCHC 34.2 32.0 - 36.0 10/04/2014 [facility] HEMATOLOGY MCH 28.6 27.0 - 31.0 10/04/2014 [facility] HEMATOLOGY Platelet 282 133 - 450 10/04/2014 [facility] HEMATOLOGY RDW 13.7 11.5 - 14.5 10/04/2014 [facility] HEMATOLOGY WBC 6.2 3.7 - 10.4 10/04/2014 [facility] HEMATOLOGY RBC 3.62 4.20 - 5.40 10/04/2014 [facility] HEMATOLOGY Hgb 10.4 12.0 - 16.0 10/04/2014 [facility] HEMATOLOGY Hct 30.4 36.0 - 48.0 10/04/2014 [facility] HEMATOLOGY MCV 83.8 80.0 - 98.0 10/04/2014 [facility] HEMATOLOGY Segs-Bands # 3.7 1.5 - 8.1 10/04/2014 [facility] HEMATOLOGY Lymphocytes # 1.8 1.0 - 5.5 10/04/2014 [facility] HEMATOLOGY Basophils 0.4 0.0 - 1.0 10/04/2014 [facility] HEMATOLOGY Monocytes 9.8 2.0 - 12.0 10/04/2014 [facility] HEMATOLOGY Eosinophils 1.8 0.0 - 4.0 10/04/2014 [facility] HEMATOLOGY Lymphocytes 28.2 20.0 - 40.0 10/04/2014 [facility] HEMATOLOGY Segs 59.8 45.0 - 75.0 10/04/2014 [facility] HEMATOLOGY Eosinophils # 0.1 0.0 - 0.5 10/04/2014 [facility] HEMATOLOGY Monocytes # 0.6 0.0 - 0.8 10/04/2014 [facility] LIPIDS VLDL 35 10/04/2014 [facility] LIPIDS LDL (Calculated) 132 <=99 mg/dL 10/04/2014 [facility] LIPIDS HDL 44 >=61 mg/dL 10/04/2014 [facility] LIPIDS Trig 175 <=149 mg/dL 10/04/2014 [facility] LIPIDS Chol 211 <=199 mg/dL 10/04/2014 [facility] LIPIDS CHD Risk 4.80 3.90 - 5.80 10/04/2014 [facility] CARDIAC ENZYMES Total CK 62 12 - 191 10/04/2014 [facility] CARDIAC ENZYMES Troponin-I <0.02 0.00 - 0.40 10/04/2014 [facility] CARDIAC ENZYMES Total CK 65 12 - 191 10/04/2014 [facility] CARDIAC ENZYMES Troponin-I <0.02 0.00 - 0.40 10/04/2014 [facility] CARDIAC ENZYMES CK MB Index 1.2 0.0 - 2.5 10/03/2014 [facility] CARDIAC ENZYMES CK MB 0.9 0.5 - 3.6 10/03/2014 [facility] CHEM PANEL eGFR 61 10/03/2014 <sup>2</sup>Result Comment: The eGFR is calculated using the CKD-EPI formula. In most young, healthy individuals the eGFR will be >90 mL/min/1.73m2. The eGFR declines with age. An eGFR of 60-89 may be normal in some populations, particularly the elderly, for whom the CKD-EPI formula has not been extensively validated. Use of the eGFR is not recommended in the following populations:& lt;br/>
Individuals with unstable creatinine concentrations, including patients and those with serious co-morbid conditions.

Patients with extremes in muscle mass or diet.

The data above are obtained from the National Kidney Disease Education Program (NKDEP) which additionally recommends that when the eGFR is used in patients with extremes of body mass index for purposes of drug dosing, the eGFR should be multiplied by the estimated BMI. [facility] CHEM PANEL Calcium Lvl 8.4 8.5 - 10.5 10/03/2014 [facility] CHEM PANEL Albumin Lvl 3.7 3.5 - 5.0 10/03/2014 [facility] CHEM PANEL B/C Ratio 19 6 - 25 10/03/2014 [facility] CHEM PANEL AGAP 11.9 10.0 - 20.0 10/03/2014 [facility] CHEM PANEL BUN 19 7 - 22 10/03/2014 [facility] CHEM PANEL Creatinine Lvl 1.0 0.5 - 1.4 10/03/2014 [facility] CHEM PANEL Sodium Lvl 133 135 - 145 10/03/2014 [facility] CHEM PANEL Chloride Lvl 96 95 - 109 10/03/2014 [facility] CHEM PANEL Potassium Lvl 3.9 3.5 - 5.1 10/03/2014 [facility] CHEM PANEL CO2 29 24 - 32 10/03/2014 [facility] CHEM PANEL Glucose Lvl 94 70 - 99 10/03/2014 <sup>4</sup>Interpretive Data: Adult ref erence range values reflect the clinical guidelines
of the [place] [employer]. [facility] CHEM PANEL Globulin 3.1 2.0 - 4.0 10/03/2014 [facility] CHEM PANEL A/G Ratio 1.2 0.7 - 1.6 10/03/2014 [facility] CHEM PANEL AST 9 0 - 37 10/03/2014 [facility] CHEM PANEL Alk Phos 71 39 - 136 10/03/2014 [facility] CHEM PANEL Bili Total 0.1 0.2 - 1.3 10/03/2014 [facility] CHEM PANEL ALT 27 0 - 65 10/03/2014 [facility] CHEM PANEL Total Protein 6.8 6.4 - 8.4 10/03/2014 [facility] HEMATOLOGY MCHC 32.1 32.0 - 36.0 10/03/2014 [facility] HEMATOLOGY RDW 13.8 11.5 - 14.5 10/03/2014 [facility] HEMATOLOGY MPV 7.5 7.4 - 10.4 10/03/2014 [facility] HEMATOLOGY Platelet 321 133 - 450 10/03/2014 [facility] HEMATOLOGY WBC 7.0 3.7 - 10.4 10/03/2014 [facility] Hgb 10.1 12.0 - 16.0 10/03/2014 [facility] RBC 3.72 4.20 - 5.40 10/03/2014 [facility] Hct 31.4 36.0 - 48.0 10/03/2014 [facility] MCH 27.1 27.0 - 31.0 10/03/2014 [facility] MCV 84.5 80.0 - 98.0 10/03/2014 [facility] Monocytes # 0.7 0.0 - 0.8 10/03/2014 [facility] HEMATOLOGY Eosinophils # 0.1 0.0 - 0.5 10/03/2014 [facility] Basophils # 0.1 0.0 - 0.2 10/03/2014 [facility] Basophils 0.7 0.0 - 1.0 10/03/2014 [facility] Lymphocytes # 1.5 1.0 - 5.5 10/03/2014 [facility] Segs-Bands # 4.6 1.5 - 8.1 10/03/2014 [facility] Segs 66.2 45.0 - 75.0 10/03/2014 [facility] Monocytes 9.9 2.0 - 12.0 10/03/2014 [facility] Lymphocytes 21.3 20.0 - 40.0 10/03/2014 [facility] Eosinophils 1.9 0.0 - 4.0 10/03/2014 [facility] INR 0.92 0.85 - 1.17 10/03/2014 <sup>5</sup>Interpretive Data: RECOMMEND ED RANGES FOR PROTIME INR:
2.0-3.0 for most medical and surgical thromboembolic states.
2.5-3.5 for artificial heart valves and recurrent embolism.

INR SHOULD BE USED ONLY FOR PATIENTS ON STABLE ANTICOAGULANT THERAPY. [facility] PT 12.3 12.0 - 14.7 10/03/2014 [facility] PTT 26.4 22.9 - 35.8 10/03/2014 <sup>6</sup>Interpretive Data: Heparin T herapeutic Range: 57 - 92 Seconds [facility] Pathology Reports No Data Provided for This Section Diagnostic Reports Report Value Date Source Brain wo contrast CT Brain wo contrast CT CLINICAL HISTORY: Headache with Dizziness and Giddiness; COMPARISON: None TECHNIQUE: Contiguous transaxial images of the brain were performed without administration of IV contrast. Reformations were performed in sagittal and coronal projections. FINDINGS: BRAIN PARENCHYMA: There is no evidence for space-occupying lesions, mass effect or vasogenic edema. No evidence for parenchymal bleed, extra-axial collections or midline shift.. No acute infarct is noted. Cerebral volume is within normal limits. No ventriculomegaly. The basilar cisterns are normal. Cerebellum demonstrates normal morphology and volume. CALVARIUM AND SKULL BASE: No displaced bony fractures or other significant bony abnormality is visualized. BRAINSTEM, SELLA AND ORBITS: No evidence for Chiari malformation. No space- occupying lesion is visualized in the sella. Visualized portion of the orbits are unremarkable. MASTOIDS AND PARANASAL SINUSES: The visualized paranasal sinuses are clear. Mastoid air cells are clear bilaterally. IMPRESSION: No acute brain abnormality is noted. SL: [id number] 01/18/2016 [facility] Chest 2 views DX EXAM: Chest 2 views DX DATE: 01/13/2016 12:02 PM [employer] INDICATION: Cough and fever COMPARISON: 10/03/2014 IMPRESSION: Stable prominent cardiac silhouette. Tortuous atherosclerotic thoracic aorta. Mild lung base atelectasis or infiltrate. No significant pleural effusion or pneumothorax. SL: [id number] 01/13/2016 [facility] Abdomen/Pelvis wo IV contrast CT Study: ABDOMEN/PELVIS WO IV CONTRAST CT, WITH RENAL STONE PROTOCOL Clinical Indication: Flank Pain; L flank pain h/o stone diffuse ab tenderness with vomiting Comparison: None Axial images with sagittal and coronal reconstructions were obtained without contrast. CT Radiation Dose: DLP = 7.03 mGy-cm FINDINGS: No urinary tract calculus, hydronephrosis or perinephric stranding is noted. The lung bases are clear. There is a small pericardial effusion. There is fatty infiltration of the liver. The gallbladder is absent. Common duct is prominent. The spleen is not remarkable. The adrenals and pancreas are not remarkable. 8 mm rounded fat density lesion is noted within the junction of the uncinate process and pancreatic head. There is a small hiatal hernia. A few scattered diverticula involve the distal colon. No mesenteric inflammatory changes noted. There is minor spondylosis. Uterus is absent. Urinary bladder is not remarkable. No adnexal mass, adenopathy or ascites is seen. IMPRESSION: 1. No urinary tract pathology or other a cute abnormality. 2. Fatty liver and probable cholecystect nancy. 3. Small hiatal hernia and mild divertic ulosis. 4. Hysterectomy. SL: [id number] 01/12/2016 [facility] Chest 1view CXR, portable (1 v iew) HISTORY: Chest pain Comparison is made to 07/06/2010. FINDINGS: The lungs are clear. There are no pleural effusions. The heart and pulmonary vasculature are within normal limits. The regional skeleton is unremarkable. CONCLUSION: 1. No active disease. Coding: Chest 1view CPT code: 58007 SL: 12 Martin Christy M.D. 10/03/2014 [facility] Consultation Notes No Data Provided for This Section Discharge Summaries No Data Provided for This Section History and Physicals No Data Provided for This Section Vital Signs Vital Sign Value Date Comments Source Weight 64.602 08/24/2018 [facility] Heart Rate 63 08/24/2018 [facility] Systolic (mm Hg) 131 08/24/2018 [facility] Diastolic (mm Hg) 75 08/24/2018 [facility] Systolic (mm Hg) 123 03/04/2018 [facility] Diastolic (mm Hg) 80 03/04/2018 [facility] Heart Rate 67 03/04/2018 [facility] Weight 65.057 03/04/2018 [facility] Temperature Oral (F) 98.1 F 01/19/2016 [facility] Respitory Rate 18 01/19/2016 [facility] Systolic (mm Hg) 202 01/19/2016 [facility] Diastolic (mm Hg) 92 01/19/2016 [facility] Heart Rate 78 01/19/2016 [facility] Heart Rate 80 01/19/2016 [facility] Temperature Oral (F) 97.9 F 01/19/2016 [facility] Systolic (mm Hg) 187 01/19/2016 [facility] Diastolic (mm Hg) 104 01/19/2016 [facility] Respitory Rate 18 01/19/2016 [facility] Respitory Rate 18 01/19/2016 [facility] Heart Rate 80 01/19/2016 [facility] Systolic (mm Hg) 187 01/19/2016 [facility] Diastolic (mm Hg) 104 01/19/2016 [facility] Temperature Oral (F) 97.9 F 01/19/2016 [facility] BMI Calculated 27.83 01/18/2016 [facility] Weight 66.818 01/18/2016 [facility] Height 154.94 cm 01/18/2016 [facility] Respitory Rate 14 01/17/2016 [facility] Respitory Rate 20 01/17/2016 [facility] Systolic (mm Hg) 179 01/17/2016 [facility] Diastolic (mm Hg) 79 01/17/2016 [facility] Temperature Oral (F) 97.7 F 01/17/2016 [facility] Heart Rate 60 01/17/2016 [facility] Heart Rate 65 01/17/2016 [facility] Temperature Oral (F) 98.1 F 01/17/2016 [facility] Systolic (mm Hg) 173 01/17/2016 [facility] Diastolic (mm Hg) 91 01/17/2016 [facility] Respitory Rate 18 01/17/2016 [facility] Heart Rate 73 01/17/2016 [facility] Temperature Oral (F) 98.0 F 01/17/2016 [facility] Systolic (mm Hg) 177 01/17/2016 [facility] Diastolic (mm Hg) 81 01/17/2016 [facility] BMI Calculated 27.83 01/13/2016 [facility] Height 154.94 cm 01/13/2016 [facility] Weight 66.818 01/13/2016 [facility] Weight 66.818 01/12/2016 [facility] BMI Calculated 27.83 01/12/2016 [facility] Height 154.94 cm 01/12/2016 [facility] Diastolic (mm Hg) 76 10/04/2014 [facility] Respitory Rate 16 10/04/2014 [facility] Systolic (mm Hg) 116 10/04/2014 [facility] Heart Rate 85 10/04/2014 [facility] Temperature Oral (F) 98.6 F 10/04/2014 [facility] Temperature Oral (F) 98.3 F 10/04/2014 [facility] Respitory Rate 16 10/04/2014 [facility] Systolic (mm Hg) 120 10/04/2014 [facility] Heart Rate 68 10/04/2014 [facility] Diastolic (mm Hg) 73 10/04/2014 [facility] Respitory Rate 16 10/04/2014 [facility] Temperature Oral (F) 97.4 F 10/04/2014 [facility] Heart Rate 76 10/04/2014 [facility] Systolic (mm Hg) 94 10/04/2014 [facility] Diastolic (mm Hg) 61 10/04/2014 [facility] Weight 59.091 10/03/2014 [facility] BMI Calculated 22.36 10/03/2014 [facility] Height 162.56 cm 10/03/2014 [facility] Encounters Location Location Details Encounter Type Encounter Number Reason For Visit Attending Provider ADM Date DC Date Status Source AUDIT [id number] 07/01/2013 07/01/2013 [facility] AUD[facility] [id number] 08/10/2013 08/10/2013 [facility] [id number] 08/11/2013 08/11/2013 [facility] AUDIT [id number] 09/03/2013 09/03/2013 [facility] OBS Observation Patient [id number] Chirag Veronica 10/03/2014 10/04/2014 [facility] Inpatient [id number] Ottoniel Iniguez 01/12/2016 01/17/2016 [facility] [id number] 02 Justyna Franks 01/18/2016 01/19/2016 [facility] Outpatient [id number] [facility] 01/13/2017 Active [facility] Outpatient [id number] [facility] 02/06/2017 Active [facility] Outpatient [id number] [facility] 09/08/2017 Active [facility] Phone Message [id number] 01/05/2018 01/07/2018 [facility] Phone Message [id number] 01/22/2018 01/24/2018 [facility] [id number] [facility] 03/09/2018 Active [facility] Outpatient [id number] [facility] 03/09/2018 03/10/2018 [facility] Phone Message [id number] 03/11/2018 03/13/2018 [facility] Phone Message [id number] 06/08/2018 06/10/2018 [facility] Outpatient [id number] [facility] 08/24/2018 Active [facility] Outpatient [id number] [facility] 08/24/2018 08/25/2018 [facility] Phone Message [id number] 11/25/2018 11/27/2018 [facility] Phone Message [id number] 03/18/2019 03/20/2019 [facility] Phone Message [id number] 03/23/2019 03/25/2019 [facility] Outpatient [id number] [facility] 07/26/2019 Active [facility] Outpatient [id number] [facility] 07/26/2019 07/27/2019 [facility] [id number] [facility] 01/25/2020 Active [facility] Outpatient [id number] [facility] 01/25/2020 01/26/2020 [facility] [id number] [facility] [facility] 07/27[facility]2020 [facility] Procedures Procedure Code Date Perfomer Comments Source Cholecystectomy<sup>2</sup> [id number] in [place] [facility] partial Hysterectomy<sup>1</sup> [id number] Partial [facility] [place] [facility] Tubal ligation<sup>3</sup> [id number] in 1976 [facility] [place] [facility] Gallbladder operation<sup>3</sup> [id number] in 1972 [facility] [place] [facility] Tubal ligation<sup>4</sup> [id number] in 1976 [facility] Cholecystectomy [id number] [facility] Hysterectomy [id number] [facility] Tubal ligation [id number] [facility] Assessment and Plan Assessment and Plan Date Source Extracted from:Title: Clinical Document Author: Chirag Veronica MD Date: 10/04/14 The patient presented with chest pain and underwent cardiac evaluation. The chest pain resolved and the ECG and cardiac enzymes remained negative. The patient was subsequently discharged home in stable condition. 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 Substance Abuse Use: None. Smoking Status Never smoker; Lives with someone who smokes; Cigarette Smoking Last 365 Days No; Reg Smoking Cessation Counseling No entered on: 08/24/18 10/04/2014 [facility] Social History TypeResponse Alcohol Never Smoking Status Lives with someone who smokes; Cigarette Smoking Last 365 Days No; Reg Smoking Cessation Counseling No; Never smoker 10/04/2014 [facility] Marital History - Currently (Active) Never A Smoker (Active) Never Drank Alcohol (Active) 09/03/2013 [facility] Family History Value Date S ource Paternal history of Coronary Artery Dise ase (V17.49); (Active) Maternal history of Cancer (Active) Maternal history of Chronic Obstructive Pulmonary Disease (Active) 09/03/2013 [facility] Paternal history of Coronary Artery Dise ase (V17.49); (Active) Maternal history of Cancer (Active) Maternal history of Chronic Obstructive Pulmonary Disease (Active) 08/11/2013 [facility] Paternal history of Coronary Artery Dise ase (V17.49); (Active) Maternal history of Cancer (Active) Maternal history of Chronic Obstructive Pulmonary Disease (Active) 08/10/2013 [facility] Advance Directives Order Name Results Value Date Source Advance Directives Advance Dir ectives No Advance Directives available. 09/03/2013 [facility] Advance Directives Advance Dir ectives No Advance Directives available. 08/11/2013 [facility] Advance Directives Advance Dir ectives No Advance Directives available. 08/10/2013 [facility] Advance Directives Advance Dir ectives No Advance Directives available. 07/01/2013 [facility] Functional Status No Data Provided for This Section
--- OUTSIDE RECORDS SUMMARY | 2020-03-23 08:49 | XMS REPORT | Summary of Care ---
Author Author [facility] Organization [facility] Address Unknown Phone Unavailable Encounter HQ Vicentar_nicole(FIN) [id number] Date(s): 01/25/20 - 01/25/20 [facility] [address] [place] [address]- Discharge Disposition: Home or Self Care Attending [...]
--- OUTSIDE RECORDS SUMMARY | 2020-03-23 08:49 | XMS REPORT | Summary of Care ---
Author Author [facility] Organization [facility] Address Unknown Phone Unavailable Encounter HQ Dedra(BERNIE) [id number] Date(s): 03/09/18 - 03/09/18 [facility] [address] [place] [phone] Discharge Disposition: Home or Self Care Attending Physician: Red Dhillon MD Referring Physician: Bartolo Chilel MD Vital Signs Most recent to 1 oldest [Reference Range]: Blood Pressure 123/80 mmHg [90-140/60-90 mmHg] (03/04/18 2:02 PM) Peripheral Pulse 67 bpm Rate [60-100 bpm] (03/04/18 2:02 PM) Weight 65.057 kg (03/04/18 2:02 PM) Problem List Condition Effective Dates Status [...] [facility] Start Date: 03/09/18 Stop Date: 03/04/19 Status: Ordered LORazepam 1 mg oral tablet 1 mg = 1 tab, PO, BID, PRN Anxiety, X 90 day, # 90 tab, 3 Refill(s) Start Date: 03/09/18 Stop Date: 03/04/19 Status: Ordered OXcarbazepine 300 mg oral tablet 300 mg = 1 tab, PO, BID, # 180 tab, 3 Refill(s), [facility]acy: [facility] Start Date: 03/09/18 Stop Date: 03/04/19 Status: Ordered trazodone 50 mg oral tablet 100 mg = 2 tab, PO, Bedtime, # 180 tab, 3 Refill(s), [facility]: [facility] Start Date: 03/09/18 Stop Date: 03/04/19 Status: Ordered Results No data available for this section Immunizations No data available for this section Procedures Procedure Date Related Diagnosis Body Site Status partial Hysterectomy1 Completed Cholecystectomy2 Completed Tubal ligation3 Completed 1Partial 2in 1973 3in 1977 Social History Social History Type Response Substance Abuse Use: None. 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
--- OUTSIDE RECORDS SUMMARY | 2020-03-23 08:49 | XMS REPORT | Summary of Care ---
Author Author [facility] Organization [facility] Address Unknown Phone Unavailable Encounter HQ Vicentar_nicole(FIN) [id number] Date(s): 11/25/18 - 11/26/18 [facility] [address] [place] [address]- Vital Signs No data available for this [...] drugs Active gabapentin HALLUCINATIONS Severe Active Medications LORazepam 1 mg oral tablet 1 mg = 1 tab, PO, BID, PRN Anxiety, # 180 tab, 0 Refill(s), called to pharmacy Start Date: 11/25/18 Stop Date: 02/23/19 Status: Ordered Results No data available for [...]
--- OUTSIDE RECORDS SUMMARY | 2020-03-23 08:49 | XMS REPORT ---
Author Author GUERDA KUNZ Organization Unknown Address Unknown Phone Care Team Providers Care Clinical Nursing Intern Name Role Phone ROSS KUNZ PP Unavailable Reason for Referral No Reason for Referral was given. History of Present Illness No HPI available. 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 (Active) * Evoxac 30 MG Oral Capsule; TAKE 1 CAPSULE 3 TIMES DAILY. (Active) * TraZODone HCl 150 MG Oral Tablet; TAKE 1 TABLET ONCE DAILY. (Active) * Caltrate 600+D TABS; TAKE 1 TABLET DAILY (Active) * Folic Acid TABS (Active) * Vitamin B-12 TABS (Active) * NexIUM 40 MG Oral Packet; one daily (Active) * Amitriptyline HCl 25 MG Oral Tablet; TAKE 1 TABLET DAILY. (Active) * Valsartan-Hydrochlorothiazide 160-25 MG Oral Tablet; TAKE 1 TABLET DAILY FOR HYPERTENSION; Start Date: 08/10/2013; End Date: (Active) Allergies and Adverse Reactions * Sulfa [...] 06/15/2009 * Fluzone Intramuscular Injectable (Lot #: [id number]) - Administered on: 08/10/2013 Family History * Paternal history of Coronary Artery Disease (V17.49); (Active) * Maternal history of Cancer (Active) * Maternal history of Chronic Obstructive Pulmonary Disease (Active) Social History * Marital History - Currently (Active) * Never A Smoker (Active) * Never Drank Alcohol (Active) Advance Directives * No Advance Directives available. Encounters * AUDIT 09/03/2013
--- OUTSIDE RECORDS SUMMARY | 2020-03-23 08:50 | XMS REPORT | Summary of Care ---
Author Author [facility] Organization [facility] Address Unknown Phone Unavailable Encounter SONIDO Colmenares(BERNIE) [id number] Date(s): 01/18/16 - 01/18/16 [facility] [address] [place] [address]- Discharge Disposition: Elopement Attending Physician: Justyna Franks MD Vital Signs 1 2 3 Most recent to oldest [Reference Range]: 154.94 cm (01/18/16 2:50 PM) Height 98.1 DegF (01/18/16 7:29 PM) 97.9 DegF (01/18/16 6:39 PM) 97.9 DegF (01/18/16 6:25 PM) Temperature Oral [96.4-99.1 DegF] 202/92 mmHg *HI* (01/18/16 7:29 PM) 187/104 mmHg *HI* (01/18/16 6:39 PM) 187/104 mmHg *HI* (01/18/16 6:25 PM) Blood Pressure [90-140/60-90 mmHg] 18 BRMIN (01/18/16 7:29 PM) 18 BRMIN (01/18/16 6:39 PM) 18 BRMIN (01/18/16 6:25 PM) Respiratory Rate [14-20 BRMIN] 78 bpm (01/18/16 7:29 PM) 80 bpm (01/18/16 6:39 PM) 80 bpm (01/18/16 6:25 PM) Peripheral Pulse Rate [60-100 bpm] 66.818 kg (01/18/16 2:50 PM) Weight 27.83 m2 (01/18/16 2:50 PM) Body Mass Index Problem List Condition Effective Dates Status Health Status Informan t Segura 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 Allergies, Adverse Reactions, Alerts Substance Reaction Severity Status sulfa drugs Active Medications cloNIDine 0.1 mg oral tablet 0.1 mg, Route: PO, Drug form: TAB, ONCE, Dosing Weight 66.818, kg, Priority: STA T, Start date: 01/18/16 19:29:00, Stop date: 01/18/16 19:29:00 Start Date: 01/18/16 Stop Date: 01/18/16 Status: Completed Tylenol 650 mg, Route: PO, Drug form: TAB, ONCE, Dosing Weight 66.818, kg, Priority: STA T, Start date: 01/18/16 18:48:00, Stop date: 01/18/16 18:48:00 Start Date: 01/18/16 Stop Date: 01/18/16 Status: Completed Results No data available for this section Immunizations No data available for this section Procedures Procedure Date Related Diagnosis Body Site Cholecystectomy Hysterectomy Tubal ligation Social History Social History Type Response Alcohol Never Smoking Status Lives with someone who smok es; Cigarette Smoking Last 365 Days No; Reg Smoking Cessation Counseling No; Never smoker Assessment and Plan No data available for this section
--- OUTSIDE RECORDS SUMMARY | 2020-03-23 08:50 | XMS REPORT | Summary of Care ---
Author Organization Unknown Address Unknown Phone Unavailable Encounter SONIDO Colmenares(BERNIE) [id number] Date(s): 10/03/14 - 10/04/14 [facility] [address] [address] Discharge Disposition: Home Physician Attending: Chirag Veronica MD Physician Admitting: Chirag Veronica MD Reason for Visit ACS R/O Vital Signs 1 2 3 Most recent to oldest [Reference Range]: 162.56 cm (10/03/14 3:28 PM) Height 98.6 DegF (10/04/14 12:00 PM) 98.3 DegF (10/04/14 8:00 AM) 97.4 DegF (10/04/14 1:30 AM) Temperature Oral [96.4-99.1 DegF] 116 mmHg (10/04/14 12:00 PM) 120 mmHg (10/04/14 8:00 AM) 94 mmHg (10/04/14 1:30 AM) Systolic Blood Pressure [90-140 mmHg] 76 mmHg (10/04/14 12:00 PM) 73 mmHg (10/04/14 8:00 AM) 61 mmHg (10/04/14 1:30 AM) Diastolic Blood Pressure [60-90 mmHg] 16 BRMIN (10/04/14 12:00 PM) 16 BRMIN (10/04/14 8:00 AM) 16 BRMIN (10/04/14 7:47 AM) Respiratory Rate [14-20 BRMIN] 85 bpm (10/04/14 12:00 PM) 68 bpm (10/04/14 8:00 AM) 76 bpm (10/04/14 1:30 AM) Peripheral Pulse Rate [60-100 bpm] 59.091 kg (10/03/14 3:28 PM) Weight 22.36 m2 (10/03/14 3:28 PM) Body Mass Index Problem List Condition Effective Dates Status Health Status Informan t Segura Resolved esophagus(Confirmed) High blood Resolved pressure(Confirmed) High Resolved cholesterol(Confirme d) Multiple Resolved sclerosis(Confirmed) Allergies, Adverse Reactions, Alerts Substance Reaction Severity Status sulfa drugs Active Medications Ambien 5 mg, Route: PO, Bedtime, Dosing Weight 59.091, kg, PRN Insomnia, Start date: 19:38:00, Duration: 30 day, Stop date: 11/02/14 19:37:00 Start Date: 10/03/14 Stop Date: 10/03/14 Status: Deleted amitriptyline 25 mg, 1 tab, Route: PO, Drug form: TAB, Bedtime, Dosing Weight 59.091, kg, Star t date: 10/03/14 21:00:00, Duration: 30 day, Stop date: 11/01/14 21:00:00 Notes: (Same as: Connor) Start Date: 10/03/14 Stop Date: 10/04/14 Status: Discontinued amitriptyline 25 mg oral tablet 25 mg = 1 tab, PO, Bedtime Start Date: 10/03/14 Status: Ordered aspirin 324 mg, Route: CHEW, Drug form: CHEWTAB, ONCE, Dosing Weight 59.091, kg, Priorit y: STAT, Start date: 10/03/14 18:34:00, Stop date: 10/03/14 18:34:00 Start Date: 10/03/14 Stop Date: 10/03/14 Status: Completed atropine 0.5 mg, 5 mL, Route: IVP, Drug form: INJ, PRN, PRN Bradycardia, Start date: 09/11 02/21 22:14:00, Duration: 30 day, Stop date: 11/02/14 22:13:00 Start Date: 10/03/14 Stop Date: 10/04/14 Status: Discontinued Caltrate 600 + D oral tablet 1 tab, PO, Daily Start Date: 10/03/14 Status: Ordered Diovan 160 mg, 1 tab, Route: PO, Drug form: TAB, Daily, Start date: 10/04/14 9:00:00, D uration: 30 day, Stop date: 11/02/14 9:00:00 Notes: Same as Diovan Start Date: 10/04/14 Stop Date: 10/04/14 Status: Discontinued folic acid 0.4 mg, 1 tab, Route: PO, Drug form: TAB, Daily, Dosing Weight 59.091, kg, Start date: 10/04/14 9:00:00, Duration: 30 day, Stop date: 11/02/14 9:00:00 Start Date: 10/04/14 Stop Date: 10/04/14 Status: Discontinued folic acid 0.4 mg oral tablet 0.4 mg = 1 tab, PO, Daily Start Date: 10/03/14 Status: Ordered hydrochlorothiazide 25 mg oral tablet 25 mg, 1 tab, Route: PO, Drug form: TAB, Daily, Start date: 10/04/14 9:00:00, Du ration: 30 day, Stop date: 11/02/14 9:00:00 Notes: (Same as: Hydrodiuril) With food. Start Date: 10/04/14 Stop Date: 10/04/14 Status: Discontinued hydrochlorothiazide-valsartan 25 mg-160 mg oral tablet 1 tab, Route: PO, Drug Form: TAB, Dosing Weight 59.091, kg, Daily, Start date: 12/04/13 9:00:00, Duration: 30 day, Stop date: 11/02/14 9:00:00 Start Date: 10/04/14 Stop Date: 10/03/14 Status: Deleted hydrochlorothiazide-valsartan 25 mg-160 mg oral tablet 1 tab, PO, Daily Start Date: 10/03/14 Status: Ordered LORazepam 1 mg, 1 tab, Route: PO, Drug form: TAB, BID, Dosing Weight 59.091, kg, Start jyoti e: 10/04/14 9:00:00, Duration: 30 day, Stop date: 11/02/14 17:00:00 Notes: (Same as: Ativan) Start Date: 10/04/14 Stop Date: 10/04/14 Status: Discontinued LORazepam 1 mg oral tablet 1 mg = 1 tab, PO, BID Start Date: 10/03/14 Status: Ordered metoprolol 50 mg oral tablet, extended release 50 mg = 1 tab, PO, Bedtime Start Date: 10/03/14 Status: Ordered metoprolol extended release 50 mg, 1 tab, Route: PO, Drug form: ERTAB, Daily, Start date: 10/04/14 9:00:00, Duration: 30 day, Stop date: 11/02/14 9:00:00 Notes: (Same as: Toprol XL) May split tab, but do not crush. Start Date: 10/04/14 Stop Date: 10/04/14 Status: Discontinued nitroglycerin 0.4 mg sublingual tablet 0.4 mg, 1 tab, Route: SL, Drug form: TAB, Q5Min, PRN Chest Pain, Start date: 22:14:00, Duration: 30 day, Stop date: 11/02/14 22:13:00 Notes: (Same as:Nitroquick, Nitrostat)"Do Not Crush" Sublingual tablet Start Date: 10/03/14 Stop Date: 10/04/14 Status: Discontinued ondansetron 4 mg, 2 mL, Route: IVP, Drug form: INJ, Q8H, Dosing Weight 59.091, kg, PRN Nause a & Vomiting, Start date: 10/03/14 21:21:00, Duration: 30 day, Stop date: 11/02/14 21:20:00 Notes: (Same as: Zofran) Start Date: 10/03/14 Stop Date: 10/04/14 Status: Discontinued pantoprazole 40 mg, 1 tab, Route: PO, Drug form: ECTAB, BID-Before Meals, Dosing Weight 59.09 1, kg, Start date: 10/04/14 7:30:00, Duration: 30 day, Stop date: 11/02/14 16:30 :00 Notes: Tablet should not be chewed or crushed.(Same as: Protonix) Start Date: 10/04/14 Stop Date: 10/04/14 Status: Discontinued pantoprazole 40 mg oral enteric coated tablet 40 mg = 1 tab, PO, BID Start Date: 10/03/14 Status: Ordered Pepcid 20 mg, 1 tab, Route: PO, Drug form: TAB, BID, Start date: 10/04/14 9:00:00, Dura tion: 30 day, Stop date: 11/02/14 17:00:00 Notes: (Same as: Pepcid) Start Date: 10/04/14 Stop Date: 10/04/14 Status: Discontinued ranitidine 150 mg oral tablet 150 mg = 1 tab, PO, BID Start Date: 10/03/14 Status: Ordered ranitidine 150 mg oral tablet 150 mg, 1 tab, Route: PO, Drug form: TAB, BID, Dosing Weight 59.091, kg, Start d ate: 10/04/14 9:00:00, Duration: 30 day, Stop date: 11/02/14 17:00:00 Start Date: 10/04/14 Stop Date: 10/03/14 Status: Deleted Restoril 15 mg, 1 cap, Route: PO, Drug form: CAP, Bedtime, PRN Sleep, Start date: 4 19:46:00, Duration: 30 day, Stop date: 11/02/14 19:45:00 Notes: (Same As: Restoril) Start Date: 10/03/14 Stop Date: 10/04/14 Status: Discontinued trazodone 50 mg oral tablet 150 mg = 3 tab, PO, Bedtime Start Date: 10/03/14 Status: Ordered trazodone 50 mg oral tablet 150 mg, 3 tab, Route: PO, Drug form: TAB, Bedtime, Dosing Weight 59.091, kg, Sta rt date: 10/03/14 21:00:00, Duration: 30 day, Stop date: 11/01/14 21:00:00 Notes: (Same As: Desyrel) Start Date: 10/03/14 Stop Date: 10/04/14 Status: Discontinued Trileptal 300 mg, 1 tab, Route: PO, Drug form: TAB, BID, Dosing Weight 59.091, kg, Start d ate: 10/04/14 9:00:00, Duration: 30 day, Stop date: 11/02/14 17:00:00 Notes: Do not crush or chew.(Same as: Trileptal) Start Date: 10/04/14 Stop Date: 10/04/14 Status: Discontinued Trileptal 300 mg oral tablet 300 mg = 1 tab, PO, BID Start Date: 10/03/14 Status: Ordered Tylenol 650 mg, 2 tab, Route: PO, Drug form: TAB, Q4H, Dosing Weight 59.091, kg, PRN Sonu n, Start date: 10/03/14 19:38:00, Duration: 30 day, Stop date: 11/02/14 19:37:00 Notes: Do not exceed 4 gm/day. (Same as: Tylenol) Start Date: 10/03/14 Stop Date: 10/04/14 Status: Discontinued Vitamin B12 500 mcg oral tablet 500 microgram = 1 tab, PO, Daily Start Date: 10/03/14 Status: Ordered Zetia 10 mg, 1 tab, Route: PO, Drug form: TAB, Daily, Dosing Weight 59.091, kg, Start date: 10/04/14 9:00:00, Duration: 30 day, Stop date: 11/02/14 9:00:00 Notes: (Same as: Zetia) Start Date: 10/04/14 Stop Date: 10/04/14 Status: Discontinued Zetia 10 mg oral tablet 10 mg = 1 tab, PO, Daily Start Date: 10/03/14 Status: Ordered Results ELECTROLYTES 1 2 3 Most recent to oldest [Reference Range]: 136 mEq/L (10/04/14 3:39 AM) 133 mEq/L *LOW* (10/03/14 3:40 PM) Sodium Lvl [135-145 mEq/L] 3.9 mEq/L (10/04/14 3:39 AM) 3.9 mEq/L (10/03/14 3:40 PM) Potassium Lvl [3.5-5.1 mEq/L] 98 mEq/L (10/04/14 3:39 AM) 96 mEq/L (10/03/14 3:40 PM) Chloride Lvl [95-109 mEq/L] 31 mEq/L (10/04/14 3:39 AM) 29 mEq/L (10/03/14 3:40 PM) CO2 [24-32 mEq/L] 10.9 mEq/L (10/04/14 3:39 AM) 11.9 mEq/L (10/03/14 3:40 PM) AGAP [10.0-20.0 mEq/L] CHEM PANEL 1 2 3 Most recent to oldest [Reference Range]: 0.7 mg/dL (10/04/14 3:39 AM) 1.0 mg/dL (10/03/14 3:40 PM) Creatinine Lvl [0.5-1.4 mg/dL] 94 mL/min/1.73m2 1 *NA* (10/04/14 3:39 AM) 61 mL/min/1.73m2 2 *NA* (10/03/14 3:40 PM) eGFR 22 mg/dL (10/04/14 3:39 AM) 19 mg/dL (10/03/14 3:40 PM) BUN [7-22 mg/dL] 31 *HI* (10/04/14 3:39 AM) 19 (10/03/14 3:40 PM) B/C Ratio [6-25] 99 mg/dL 3 (10/04/14 3:39 AM) 94 mg/dL 4 (10/03/14 3:40 PM) Glucose Lvl [70-99 mg/dL] 6.2 g/dL *LOW* (10/04/14 3:39 AM) 6.8 g/dL (10/03/14 3:40 PM) Total Protein [6.4-8.4 g/dL] 3.4 g/dL *LOW* (10/04/14 3:39 AM) 3.7 g/dL (10/03/14 3:40 PM) Albumin Lvl [3.5-5.0 g/dL] 2.8 g/dL (10/04/14 3:39 AM) 3.1 g/dL (10/03/14 3:40 PM) Globulin [2.0-4.0 g/dL] 1.2 (10/04/14 3:39 AM) 1.2 (10/03/14 3:40 PM) A/G Ratio [0.7-1.6] 8.4 mg/dL *LOW* (10/04/14 3:39 AM) 8.4 mg/dL *LOW* (10/03/14 3:40 PM) Calcium Lvl [8.5-10.5 mg/dL] 22 unit/L (10/04/14 3:39 AM) 27 unit/L (10/03/14 3:40 PM) ALT [0-65 unit/L] 8 unit/L (10/04/14 3:39 AM) 9 unit/L (10/03/14 3:40 PM) AST [0-37 unit/L] 66 unit/L (10/04/14 3:39 AM) 71 unit/L (10/03/14 3:40 PM) Alk Phos [39-136 unit/L] 0.2 mg/dL (10/04/14 3:39 AM) 0.1 mg/dL *LOW* (10/03/14 3:40 PM) Bili Total [0.2-1.3 mg/dL] 1Result Comment: The eGFR is calculated using the [...] from the National Kidney Disease Education Program ( NKDEP) which additionally recommends that when the eGFR is used in patients with extremes of body mass index for purposes of drug dosing, the eGFR should be mul tiplied by the estimated BMI. 2Result Comment: The eGFR is calculated using the [...] from the National Kidney Disease Education Program ( NKDEP) which additionally recommends that when the eGFR is used in patients with extremes of body mass index for purposes of drug dosing, the eGFR should be mul tiplied by the estimated BMI. 3Interpretive Data: Adult reference range values reflect the clinical guidelines of the [place] [employer]. 4Interpretive Data: Adult reference range values reflect the clinical guidelines of the [place] [employer]. CARDIAC ENZYMES 1 2 3 Most recent to oldest [Reference Range]: 58 unit/L (10/04/14 3:39 AM) 62 unit/L (10/04/14 1:43 AM) 65 unit/L (10/03/14 9:47 PM) Total CK [12-191 unit/L] 0.9 ng/mL (10/03/14 3:40 PM) CK MB [0.5-3.6 ng/mL] 1.2 (10/03/14 3:40 PM) CK MB Index [0.0-2.5] <0.02 ng/mL (10/04/14 3:39 AM) <0.02 ng/mL (10/04/14 1:43 AM) <0.02 ng/mL (10/03/14 9:47 PM) Troponin-I [0.00-0.40 ng/mL] LIPIDS 1 2 3 Most recent to oldest [Reference Range]: 4.80 (10/04/14 3:39 AM) CHD Risk [3.90-5.80] 211 mg/dL *HI* (10/04/14 3:39 AM) Chol [<=199 mg/dL] 175 mg/dL *HI* (10/04/14 3:39 AM) Trig [<=149 mg/dL] 44 mg/dL *LOW* (10/04/14 3:39 AM) HDL [>=61 mg/dL] 132 mg/dL *HI* (10/04/14 3:39 AM) LDL (Calculated) [<=99 mg/dL] 35 *NA* (10/04/14 3:39 AM) VLDL HEMATOLOGY 1 2 3 Most recent to oldest [Reference Range]: 6.2 K/CMM (10/04/14 3:39 AM) 7.0 K/CMM (10/03/14 3:40 PM) WBC [3.7-10.4 K/CMM] 3.62 M/CMM *LOW* (10/04/14 3:39 AM) 3.72 M/CMM *LOW* (10/03/14 3:40 PM) RBC [4.20-5.40 M/CMM] 10.4 g/dL *LOW* (10/04/14 3:39 AM) 10.1 g/dL *LOW* (10/03/14 3:40 PM) Hgb [12.0-16.0 g/dL] 30.4 % *LOW* (10/04/14 3:39 AM) 31.4 % *LOW* (10/03/14 3:40 PM) Hct [36.0-48.0 %] 83.8 fL (10/04/14 3:39 AM) 84.5 fL (10/03/14 3:40 PM) MCV [80.0-98.0 fL] 28.6 pg (10/04/14 3:39 AM) 27.1 pg (10/03/14 3:40 PM) MCH [27.0-31.0 pg] 34.2 g/dL (10/04/14 3:39 AM) 32.1 g/dL (10/03/14 3:40 PM) MCHC [32.0-36.0 g/dL] 13.7 % (10/04/14 3:39 AM) 13.8 % (10/03/14 3:40 PM) RDW [11.5-14.5 %] 282 K/CMM (10/04/14 3:39 AM) 321 K/CMM (10/03/14 3:40 PM) Platelet [133-450 K/CMM] 7.6 fL (10/04/14 3:39 AM) 7.5 fL (10/03/14 3:40 PM) MPV [7.4-10.4 fL] 59.8 % (10/04/14 3:39 AM) 66.2 % (10/03/14 3:40 PM) Segs [45.0-75.0 %] 28.2 % (10/04/14 3:39 AM) 21.3 % (10/03/14 3:40 PM) Lymphocytes [20.0-40.0 %] 9.8 % (10/04/14 3:39 AM) 9.9 % (10/03/14 3:40 PM) Monocytes [2.0-12.0 %] 1.8 % (10/04/14 3:39 AM) 1.9 % (10/03/14 3:40 PM) Eosinophils [0.0-4.0 %] 0.4 % (10/04/14 3:39 AM) 0.7 % (10/03/14 3:40 PM) Basophils [0.0-1.0 %] 3.7 K/CMM (10/04/14 3:39 AM) 4.6 K/CMM (10/03/14 3:40 PM) Segs-Bands # [1.5-8.1 K/CMM] 1.8 K/CMM (10/04/14 3:39 AM) 1.5 K/CMM (10/03/14 3:40 PM) Lymphocytes # [1.0-5.5 K/CMM] 0.6 K/CMM (10/04/14 3:39 AM) 0.7 K/CMM (10/03/14 3:40 PM) Monocytes # [0.0-0.8 K/CMM] 0.1 K/CMM (10/04/14 3:39 AM) 0.1 K/CMM (10/03/14 3:40 PM) Eosinophils # [0.0-0.5 K/CMM] 0.1 K/CMM (10/03/14 3:40 PM) Basophils # [0.0-0.2 K/CMM] 12.3 seconds (10/03/14 3:40 PM) PT [12.0-14.7 seconds] 0.92 5 (10/03/14 3:40 PM) INR [0.85-1.17] 26.4 seconds 6 (10/03/14 3:40 PM) PTT [22.9-35.8 seconds] 5Interpretive Data: RECOMMENDED RANGES FOR PROTIME INR: 2.0-3.0 for most medical and surgical thromboembolic states. 2.5-3.5 for artificial heart valves and recurrent embolism. INR SHOULD BE USED ONLY FOR PATIENTS ON STABLE ANTICOAGULANT THERAPY. 6Interpretive Data: Heparin Therapeutic Range: 57 - 92 Seconds Medications Administered During Your Visit No data available for this section Immunizations No data available for this section Procedures Procedure Type Body Site Date of Procedure Related Diag nosis Cholecystectomy Hysterectomy Tubal ligation Social History Social History Type Response Alcohol Use: Never Smoking Status Never smoker, Lives with so meone who smokes, Cigarette Smoking Last 365 Days No, Reg Smoking Cessation Counseli ng No Assessment and Plan Extracted from: Title: Clinical Document Author: Chirag Veronica MD Date: 12/04/13 The patient presented with chest pain an d underwent cardiac evaluation. The chest pain resolved and the ECG and cardiac enzymes remained negative. The patient was subsequently discharged home in stable condition. No new meds prescribed at this time Cardiac diet Regular activity F/U in 1-2 weeks in office
--- OUTSIDE RECORDS SUMMARY | 2020-03-23 08:50 | XMS REPORT | Summary of Care ---
Author Author [facility]obo [facility] Organization [facility] Address Unknown Phone Unavailable Encounter HQ Dedra(BERNIE) [id number] Date(s): 03/09/18 - 03/09/18 [facility] [address] [place] [phone] Discharge Disposition: Home or Self Care Attending [...] # 180 tab, 3 Refill(s), Pharmacy: [facility] Start Date: 03/09/18 Stop Date: 03/04/19 Status: Ordered trazodone 50 mg oral tablet 100 mg = 2 tab, PO, Bedtime, # 180 tab, 3 Refill(s), [facility]acy: [facility] Start Date: 03/09/18 Stop [...]
--- OUTSIDE RECORDS SUMMARY | 2020-03-23 08:50 | XMS REPORT | Summary of Care ---
Author Author WYA [facility] Organization [facility] Address Unknown Phone Unavailable Encounter HQ Encntr_nicole(FIN) [id number] Date(s): 03/11/18 - 03/12/18 [facility] [address] [place] [phone] Vital Signs No data available for this [...]
--- OUTSIDE RECORDS SUMMARY | 2020-03-23 08:50 | XMS REPORT | Summary of Care ---
Author Author COJacobo [facility] Organization [facility] Address Unknown Phone Unavailable Encounter HQ Vicentar_nicole(FIN) [id number] Date(s): 01/05/18 - 01/06/18 [facility] [address] [place] [phone] Vital Signs No data available for this [...] drugs Active gabapentin HALLUCINATIONS Severe Active Medications trazodone 50 mg oral tablet 150 mg = 3 tab, PO, Bedtime, # 270 tab, 0 Refill(s), Pharmacy: [facility] [place] [id number] Start Date: 01/06/18 Stop Date: 01/22/18 Status: Completed Results No data available for [...]
--- OUTSIDE RECORDS SUMMARY | 2020-03-23 08:50 | XMS REPORT | Summary of Care ---
Author Author MARIA [facility] Organization [facility] Address Unknown Phone Unavailable Encounter HQ Vicentar_nicole(FIN) [id number] Date(s): 06/08/18 - 06/09/18 [facility] [address] [place] [phone] Vital Signs No data available for this [...] PRN Anxiety, # 90 tab, 0 Refill(s) Start Date: 06/09/18 Stop Date: 08/24/18 Status: Discontinued Results No data available for this section [...]
--- OUTSIDE RECORDS SUMMARY | 2020-03-23 08:50 | XMS REPORT | Summary of Care ---
Author Author [facility] Organization [facility] Address Unknown Phone Unavailable Encounter SONIDO Colmenares(BERNIE) [phone] Date(s): 01/12/16 - 01/17/16 [facility] [address] [place] [address]- Discharge Disposition: Home Attending Physician: Ottoniel Iniguez MD Admitting Physician: Ottoniel Iniguez MD Vital Signs 1 2 3 Most recent to oldest [Reference Range]: 154.94 cm (01/12/16 10:21 PM) 154.94 cm (01/12/16 2:15 PM) Height 97.7 DegF (01/17/16 7:50 AM) 98.1 DegF (01/17/16 4:44 AM) 98.0 DegF (01/16/16 11:37 PM) Temperature Oral [96.4-99.1 DegF] 179/79 mmHg *HI* (01/17/16 7:50 AM) 173/91 mmHg *HI* (01/17/16 4:44 AM) 177/81 mmHg *HI* (01/16/16 11:37 PM) Blood Pressure [90-140/60-90 mmHg] 14 BRMIN (01/17/16 9:29 AM) 20 BRMIN (01/17/16 7:50 AM) 18 BRMIN (01/17/16 4:44 AM) Respiratory Rate [14-20 BRMIN] 60 bpm (01/17/16 7:50 AM) 65 bpm (01/17/16 4:44 AM) 73 bpm (01/16/16 11:37 PM) Peripheral Pulse Rate [60-100 bpm] 66.818 kg (01/12/16 10:21 PM) 66.818 kg (01/12/16 2:15 PM) Weight 27.83 m2 (01/12/16 10:21 PM) 27.83 m2 (01/12/16 2:15 PM) Body Mass Index Problem List Condition Effective Dates Status Health Status Informan t Segura 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 Allergies, Adverse Reactions, Alerts Substance Reaction Severity Status sulfa drugs Active Medications amitriptyline 25 mg, 1 tab, Route: PO, Drug form: TAB, Bedtime, Dosing Weight 66.818, kg, Star t date: 01/13/16 16:00:00, Duration: 30 day, Stop date: 02/11/16 16:00:00 Notes: (Same as: Elavil) Start Date: 01/13/16 Stop Date: 01/17/16 Status: Discontinued Augmentin 875 mg oral tablet 1 tab, Route: PO, Drug Form: TAB, Dosing Weight 66.818, kg, Q12H, Pt.'s home Med s, Start date: 01/13/16 21:00:00, Duration: 30 day, Stop date: 02/12/16 9:00:00 Start Date: 01/13/16 Stop Date: 01/13/16 Status: Deleted Augmentin 875mg Tablet Augmentin 875mg Tablet, 1 tab, Drug form: MISC, Route: PO, Q12H, 01/13/16 21:00: 00, Duration: 30 day, Stop date: 02/12/16 9:00:00 Start Date: 01/13/16 Stop Date: 01/17/16 Status: Discontinued calcium-vitamin D 600 mg-200 units oral tablet 1 tab, Route: PO, Drug Form: TAB, Dosing Weight 66.818, kg, Daily, Start date: 0 01/14/16 9:00:00, Duration: 30 day, Stop date: 02/12/16 9:00:00 Notes: (Same As: Gurpreet-D, OsCal-D, Oyster Calcium) Start Date: 01/14/16 Stop Date: 01/17/16 Status: Discontinued doxycycline 100 mg, 1 tab, Route: PO, Drug form: TAB, [id number], Dosing Weight 66.818, kg, Sta rt date: 01/17/16 11:00:00, Duration: 30 day, Stop date: 02/15/16 23:00:00 Notes: NO MILK/ANTACIDS/IRON Take 1 hour before or 2 hours after dairy products Start Date: 01/17/16 Stop Date: 01/17/16 Status: Discontinued doxycycline hyclate 100 mg oral tablet 100 mg = 1 tab, PO, [id number], # 14 tab, 0 Refill(s) Start Date: 01/17/16 Stop Date: 01/18/16 Status: Completed DuoNeb inhalation solution 3 ml, Route: NEB, Drug Form: SOLN, Dosing Weight 66.818, kg, Q4H, PRN Respirator y Protocol, Start date: 01/15/16 18:08:00, Duration: 30 day, Stop date: 02/14/16 18:07:00 Notes: (Same as: Duoneb) Start Date: 01/15/16 Stop Date: 01/17/16 Status: Discontinued folic acid 0.4 mg, 1 tab, Route: PO, Drug form: TAB, Daily, Dosing Weight 66.818, kg, Start date: 01/14/16 9:00:00, Duration: 30 day, Stop date: 02/12/16 9:00:00 Start Date: 01/14/16 Stop Date: 01/17/16 Status: Discontinued hydrochlorothiazide-valsartan 25 mg-160 mg oral tablet 1 tab, Route: PO, Drug Form: TAB, Dosing Weight 66.818, kg, Daily, Start date: 0 01/14/16 9:00:00, Duration: 30 day, Stop date: 02/12/16 9:00:00 Start Date: 01/14/16 Stop Date: 01/13/16 Status: Canceled INVanz + Sodium Chloride 0.9% IV 100 mL 1 gm, Route: IVPB, [id number], Dosing Weight 66.818, kg, Start date: 01/16/16 11:00 :00, Duration: 30 day, Stop date: 02/14/16 11:00:00 Notes: (Same as: INVanz) Refrigerate. NOT COMPATIBLE WITH D5W.Stable in refrige rator for 24 hours MEDICATION WASTE Product Size: 1000 mgProduct Wasted : ___ mg Start Date: 01/16/16 Stop Date: 01/17/16 Status: Discontinued LORazepam 1 mg, 1 tab, Route: PO, Drug form: TAB, BID, Dosing Weight 66.818, kg, Start jyoti e: 01/13/16 17:00:00, Duration: 30 day, Stop date: 02/12/16 9:00:00 Notes: (Same as: Ativan) Start Date: 01/13/16 Stop Date: 01/17/16 Status: Discontinued normal saline 0.9% IV 1,000 mL 1,000 mL, Rate: 50 ml/hr, Infuse over: 20 hr, Route: IV, Dosing Weight 66.818 kg , Total Volume: 1,000, Start date: 01/16/16 20:25:00, Duration: 30 day, Stop jyoti e: 02/15/16 20:24:00 Start Date: 01/16/16 Stop Date: 01/17/16 Status: Discontinued NS (Bolus) IV 1,000 mL, 1,000 ml/hr, Infuse Over: 1 hr, Route: IV, ONCE, Priority: STAT, Dosin g Weight 66.818 kg, Start date: 01/12/16 18:21:00, Duration: 1 doses or times, S top date: 01/12/16 18:21:00 Start Date: 01/12/16 Stop Date: 01/12/16 Status: Completed NS (Bolus) IV 1,000 mL, 1,000 ml/hr, Infuse Over: 1 hr, Route: IV, 1,000, Drug form: INJ, ONCE , Priority: STAT, Dosing Weight 66.818 kg, Start date: 01/12/16 14:30:00, Durati on: 1 doses or times, Stop date: 01/12/16 14:30:00 Start Date: 01/12/16 Stop Date: 01/12/16 Status: Completed pantoprazole 40 mg, 1 tab, Route: PO, Drug form: ECTAB, BID, Dosing Weight 66.818, kg, Start date: 01/13/16 17:00:00, Duration: 30 day, Stop date: 02/12/16 9:00:00 Notes: Tablet should not be chewed or crushed.(Same as: Protonix) Start Date: 01/13/16 Stop Date: 01/17/16 Status: Discontinued Pepcid 20 mg, 1 tab, Route: PO, Drug form: TAB, BID, Start date: 01/13/16 17:00:00, Dur ation: 30 day, Stop date: 02/12/16 9:00:00 Notes: (Same as: Pepcid) Start Date: 01/13/16 Stop Date: 01/17/16 Status: Discontinued potassium chloride 20 mEq, 1 tab, Route: PO, Drug form: ERTAB, ONCE, Dosing Weight 66.818, kg, Star t date: 01/16/16 9:06:00, Stop date: 01/16/16 9:06:00 Notes: (Same as: K-Dur 20)"Do Not Crush" With food and full glass of water Start Date: 01/16/16 Stop Date: 01/16/16 Status: Completed potassium chloride 40 mEq, 2 tab, Route: PO, Drug form: ERTAB, ONCE, Dosing Weight 66.818, kg, Star t date: 01/13/16 15:57:00, Stop date: 01/13/16 15:57:00 Notes: (Same as: K-Dur 20)"Do Not Crush" With food and full glass of water Start Date: 01/13/16 Stop Date: 01/13/16 Status: Completed ranitidine 150 mg oral tablet 150 mg, 1 tab, Route: PO, Drug form: TAB, BID, Dosing Weight 66.818, kg, Start d ate: 01/13/16 17:00:00, Duration: 30 day, Stop date: 02/12/16 9:00:00 Start Date: 01/13/16 Stop Date: 01/13/16 Status: Discontinued Rocephin + Sodium Chloride 0.9% IV 100 mL 1 gm, Route: IVPB, Drug form: PDR/INJ, [id number], Dosing Weight 66.818, kg, Start date: 01/15/16 16:00:00, Duration: 30 day, Stop date: 02/13/16 16:00:00 Notes: (Same As: Rocephin).Use with 100 mL NS and infuse over 30 min MEDICA TION WASTE Product Size: 1000 mgProduct Wasted: ___ mg Start Date: 01/15/16 Stop Date: 01/16/16 Status: Discontinued Saline Flush 0.9% 10 ml, Route: IVP, Drug Form: INJ, Dosing Weight 66.818, kg, PRN, PRN Line Flush , Start date: 01/12/16 21:35:00, Duration: 30 day, Stop date: 02/11/16 22:34:00 Notes: (Same as: BD Posiflush) Start Date: 01/12/16 Stop Date: 01/17/16 Status: Discontinued Sodium Chloride 0.9% IV 1,000 mL 1,000 mL, Rate: 75 ml/hr, Infuse over: 13.3 hr, Route: IV, Dosing Weight 66.818 kg, Total Volume: 1,000, Start date: 01/12/16 21:35:00, Stop date: 02/11/16 21:3 4:00 Start Date: 01/12/16 Stop Date: 01/16/16 Status: Discontinued Toprol-XL 50 mg oral tablet, extended release 50 mg, 1 tab, Route: PO, Drug form: TAB, BID, Priority: NOW, Start date: 6 12:49:00, Duration: 30 day, Stop date: 02/13/16 9:00:00 Notes: (Same as: Lopressor) Start Date: 01/14/16 Stop Date: 01/17/16 Status: Discontinued Toprol-XL 50 mg oral tablet, extended release 50 mg, 1 tab, Route: PO, Drug form: TAB, Bedtime, Start date: 01/13/16 16:00:00, Duration: 30 day, Stop date: 02/11/16 16:00:00 Notes: (Same as: Lopressor) Start Date: 01/13/16 Stop Date: 01/14/16 Status: Discontinued trazodone 50 mg oral tablet 150 mg, 3 tab, Route: PO, Drug form: TAB, Bedtime, Dosing Weight 66.818, kg, Sta rt date: 01/13/16 21:00:00, Duration: 30 day, Stop date: 02/11/16 21:00:00 Notes: (Same As: Desyrel) Start Date: 01/13/16 Stop Date: 01/17/16 Status: Discontinued Trileptal 300 mg, 1 tab, Route: PO, Drug form: TAB, BID, Dosing Weight 66.818, kg, Start d ate: 01/13/16 17:00:00, Duration: 30 day, Stop date: 02/12/16 9:00:00 Notes: Do not crush or chew.(Same as: Trileptal) Start Date: 01/13/16 Stop Date: 01/17/16 Status: Discontinued Tylenol 650 mg, 2 tab, Route: PO, Drug form: TAB, Q6H, Dosing Weight 66.818, kg, PRN For Temp > 100.4 F, Start date: 01/13/16 4:30:00, Duration: 30 day, Stop date: 02/12/16 4:29:00 Notes: Do not exceed 4 gm/day. (Same as: Tylenol) Start Date: 01/13/16 Stop Date: 01/17/16 Status: Discontinued valsartan 160 mg, 1 tab, Route: PO, Drug form: TAB, Daily, Dosing Weight 66.818, kg, Start date: 01/14/16 9:00:00, Duration: 30 day, Stop date: 02/12/16 9:00:00 Notes: Same as Diovan Start Date: 01/14/16 Stop Date: 01/17/16 Status: Discontinued valsartan 160 mg oral tablet 160 mg = 1 tab, PO, Daily, # 30 tab, 0 Refill(s) Start Date: 01/17/16 Status: Ordered Vitamin B12 500 microgram, 1 tab, Route: PO, Drug form: TAB, Daily, Dosing Weight 66.818, kg , Start date: 01/14/16 9:00:00, Duration: 30 day, Stop date: 02/12/16 9:00:00 Notes: (Same As: Vitamin B12) Start Date: 01/14/16 Stop Date: 01/17/16 Status: Discontinued Zetia 10 mg, 1 tab, Route: PO, Drug form: TAB, Daily, Dosing Weight 66.818, kg, Start date: 01/14/16 9:00:00, Duration: 30 day, Stop date: 02/12/16 9:00:00 Notes: (Same as: Zetia) Start Date: 01/14/16 Stop Date: 01/17/16 Status: Discontinued Zofran 4 mg, 2 mL, Route: IVP, Drug form: INJ, ONCE, Dosing Weight 66.818, kg, Priority : STAT, Start date: 01/12/16 14:30:00, Stop date: 01/12/16 14:30:00 Notes: (Same as: Zofran) MEDICATION WASTE Product Size: 4 mgProduct Was audi: ___ mg Start Date: 01/12/16 Stop Date: 01/12/16 Status: Completed Results ELECTROLYTES 1 2 3 Most recent to oldest [Reference Range]: 134 mEq/L *LOW* (01/15/16 3:05 PM) 130 mEq/L *LOW* (01/14/16 4:02 AM) 126 mEq/L *LOW* (01/13/16 2:43 PM) Sodium Lvl [135-145 mEq/L] 3.3 mEq/L *LOW* (01/15/16 3:05 PM) 3.4 mEq/L *LOW* (01/14/16 4:02 AM) 3.3 mEq/L *LOW* (01/13/16 2:43 PM) Potassium Lvl [3.5-5.1 mEq/L] 98 mEq/L (01/15/16 3:05 PM) 95 mEq/L (01/14/16 4:02 AM) 91 mEq/L *LOW* (01/13/16 2:43 PM) Chloride Lvl [95-109 mEq/L] 27 mEq/L (01/15/16 3:05 PM) 28 mEq/L (01/14/16 4:02 AM) 27 mEq/L (01/13/16 2:43 PM) CO2 [24-32 mEq/L] 12.3 mEq/L (01/15/16 3:05 PM) 10.4 mEq/L (01/14/16 4:02 AM) 11.3 mEq/L (01/13/16 2:43 PM) AGAP [10.0-20.0 mEq/L] CHEM PANEL 1 2 3 Most recent to oldest [Reference Range]: 0.55 mg/dL (01/15/16 3:05 PM) 0.46 mg/dL *LOW* (01/14/16 4:02 AM) 0.54 mg/dL (01/13/16 2:43 PM) Creatinine Lvl [0.50-1.40 mg/dL] 102 mL/min/1.73m2 1 *NA* (01/15/16 3:05 PM) 108 mL/min/1.73m2 2 *NA* (01/14/16 4:02 AM) 102 mL/min/1.73m2 3 *NA* (01/13/16 2:43 PM) eGFR 7 mg/dL (01/15/16 3:05 PM) 6 mg/dL *LOW* (01/14/16 4:02 AM) 8 mg/dL (01/13/16 2:43 PM) BUN [7-22 mg/dL] 13 (01/14/16 4:02 AM) 15 (01/13/16 2:43 PM) 12 (01/12/16 3:38 PM) B/C Ratio [6-25] 137 mg/dL *HI* (01/15/16 3:05 PM) 89 mg/dL (01/14/16 4:02 AM) 102 mg/dL *HI* (01/13/16 2:43 PM) Glucose Lvl [70-99 mg/dL] 5.6 g/dL *LOW* (01/14/16 4:02 AM) 6.0 g/dL *LOW* (01/13/16 2:43 PM) 7.4 g/dL (01/12/16 3:38 PM) Total Protein [6.4-8.4 g/dL] 3.0 g/dL *LOW* (01/14/16 4:02 AM) 3.2 g/dL *LOW* (01/13/16 2:43 PM) 4.1 g/dL (01/12/16 3:38 PM) Albumin Lvl [3.5-5.0 g/dL] 2.6 g/dL (01/14/16 4:02 AM) 2.8 g/dL (01/13/16 2:43 PM) 3.3 g/dL (01/12/16 3:38 PM) Globulin [2.0-4.0 g/dL] 1.2 (01/14/16 4:02 AM) 1.1 (01/13/16 2:43 PM) 1.2 (01/12/16 3:38 PM) A/G Ratio [0.7-1.6] 8.1 mg/dL *LOW* (01/15/16 3:05 PM) 7.6 mg/dL *LOW* (01/14/16 4:02 AM) 7.6 mg/dL *LOW* (01/13/16 2:43 PM) Calcium Lvl [8.5-10.5 mg/dL] 2.8 mg/dL (01/12/16 10:18 PM) Phosphorus [2.5-4.5 mg/dL] 2.0 mg/dL (01/13/16 2:43 PM) 1.7 mg/dL *LOW* (01/12/16 10:18 PM) Magnesium Lvl [1.8-2.4 mg/dL] 18 unit/L (01/14/16 4:02 AM) 22 unit/L (01/13/16 2:43 PM) 23 unit/L (01/12/16 3:38 PM) ALT [0-65 unit/L] 15 unit/L (01/14/16 4:02 AM) 16 unit/L (01/13/16 2:43 PM) 15 unit/L (01/12/16 3:38 PM) AST [0-37 unit/L] 48 unit/L (01/14/16 4:02 AM) 56 unit/L (01/13/16 2:43 PM) 65 unit/L (01/12/16 3:38 PM) Alk Phos [39-136 unit/L] 0.7 mg/dL (01/14/16 4:02 AM) 0.2 mg/dL (01/13/16 2:43 PM) 0.3 mg/dL (01/12/16 3:38 PM) Bili Total [0.2-1.3 mg/dL] 87 unit/L (01/12/16 3:38 PM) Lipase Lvl [73-393 unit/L] 255 mOsm/kg *LOW* (01/12/16 10:18 PM) Osmolality [280-300 mOsm/kg] 1Result Comment: The eGFR is calculated using [...] be mul tiplied by the estimated BMI. 3Result Comment: The eGFR is calculated using the [...] be mul tiplied by the estimated BMI. CARDIAC ENZYMES 1 2 3 Most recent to oldest [Reference Range]: 0.03 ng/mL (01/14/16 4:02 AM) 0.03 ng/mL (01/13/16 8:50 PM) <0.02 ng/mL (01/13/16 2:43 PM) Troponin-I [0.00-0.40 ng/mL] URINE CHEM 1 2 3 Most recent to oldest [Reference Range]: 15.70 mg/dL *NA* (01/14/16 10:51 AM) U Creatinine 46 mEq/L *NA* (01/14/16 10:51 AM) U Sodium 162 mOsm/kg *LOW* (01/14/16 10:51 AM) U Osmolality [300-800 mOsm/kg] URINE AND STOOL 1 2 3 Most recent to oldest [Reference Range]: Clear (01/12/16 3:38 PM) UA Turbidity [Clear] Ltyellow *NA* (01/12/16 3:38 PM) UA Color 6.0 (01/12/16 3:38 PM) UA pH [5.0-8.0] 1.018 (01/12/16 3:38 PM) UA Spec Grav [<=1.030] Negative mg/dL *NA* (01/12/16 3:38 PM) UA Glucose [Negative mg/dL] Negative (01/12/16 3:38 PM) UA Blood [Negative] Negative mg/dL *NA* (01/12/16 3:38 PM) UA Ketones [Negative mg/dL] Negative mg/dL (01/12/16 3:38 PM) UA Protein [Negative mg/dL] <=1.0 mg/dL *NA* (01/12/16 3:38 PM) UA Urobilinogen [0.1-1.0 mg/dL] Negative *NA* (01/12/16 3:38 PM) UA Bili [Negative] Trace *ABN* (01/12/16 3:38 PM) UA Leuk Est [Negative] Negative (01/12/16 3:38 PM) UA Nitrite [Negative] 3 /HPF (01/12/16 3:38 PM) UA WBC [0-5 /HPF] 7 /HPF *HI* (01/12/16 3:38 PM) UA RBC [0-2 /HPF] Occasional /LPF *NA* (01/12/16 3:38 PM) UA Sq Epi [Few /LPF] Few /LPF *NA* (01/12/16 3:38 PM) UA Mucus [None Seen /LPF] Negative 1 (01/14/16 10:34 AM) Occult Bld Stl [Negative] None Seen (01/14/16 10:34 AM) Fecal Leukocyte 1Result Comment: Called Virgen Scruggs at 01/14/2016 11:18. Initially put in positive when should have hit negative. ka HEMATOLOGY 1 2 3 Most recent to oldest [Reference Range]: 2.3 K/CMM *LOW* (01/15/16 3:05 PM) 2.0 K/CMM *LOW* (01/14/16 4:02 AM) 4.9 K/CMM (01/12/16 3:38 PM) WBC [3.7-10.4 K/CMM] 3.69 M/CMM *LOW* (01/15/16 3:05 PM) 3.27 M/CMM *LOW* (01/14/16 4:02 AM) 4.13 M/CMM *LOW* (01/12/16 3:38 PM) RBC [4.20-5.40 M/CMM] 10.1 g/dL *LOW* (01/15/16 3:05 PM) 9.1 g/dL *LOW* (01/14/16 4:02 AM) 11.4 g/dL *LOW* (01/12/16 3:38 PM) Hgb [12.0-16.0 g/dL] 31.3 % *LOW* (01/15/16 3:05 PM) 27.4 % *LOW* (01/14/16 4:02 AM) 34.1 % *LOW* (01/12/16 3:38 PM) Hct [36.0-48.0 %] 84.7 fL (01/15/16 3:05 PM) 83.8 fL (01/14/16 4:02 AM) 82.6 fL (01/12/16 3:38 PM) MCV [80.0-98.0 fL] 27.4 pg (01/15/16 3:05 PM) 27.9 pg (01/14/16 4:02 AM) 27.5 pg (01/12/16 3:38 PM) MCH [27.0-31.0 pg] 32.4 g/dL (01/15/16 3:05 PM) 33.3 g/dL (01/14/16 4:02 AM) 33.3 g/dL (01/12/16 3:38 PM) MCHC [32.0-36.0 g/dL] 13.9 % (01/15/16 3:05 PM) 13.6 % (01/14/16 4:02 AM) 13.6 % (01/12/16 3:38 PM) RDW [11.5-14.5 %] 184 K/CMM (01/15/16 3:05 PM) 162 K/CMM (01/14/16 4:02 AM) 256 K/CMM (01/12/16 3:38 PM) Platelet [133-450 K/CMM] 7.5 fL (01/15/16 3:05 PM) 7.9 fL (01/14/16 4:02 AM) 7.6 fL (01/12/16 3:38 PM) MPV [7.4-10.4 fL] 44.0 % *LOW* (01/15/16 3:05 PM) 37.0 % *LOW* (01/14/16 4:02 AM) 81.4 % *HI* (01/12/16 3:38 PM) Segs [45.0-75.0 %] 40.3 % *HI* (01/15/16 3:05 PM) 36.0 % (01/14/16 4:02 AM) 4.4 % *LOW* (01/12/16 3:38 PM) Lymphocytes [20.0-40.0 %] 13.6 % *HI* (01/15/16 3:05 PM) 26.0 % *HI* (01/14/16 4:02 AM) 12.3 % *HI* (01/12/16 3:38 PM) Monocytes [2.0-12.0 %] 1.2 % (01/15/16 3:05 PM) 0.2 % (01/14/16 4:02 AM) 1.0 % (01/12/16 3:38 PM) Eosinophils [0.0-4.0 %] 0.9 % (01/15/16 3:05 PM) 0.8 % (01/14/16 4:02 AM) 0.9 % (01/12/16 3:38 PM) Basophils [0.0-1.0 %] 1.0 K/CMM *LOW* (01/15/16 3:05 PM) 0.7 K/CMM *LOW* (01/14/16 4:02 AM) 4.0 K/CMM (01/12/16 3:38 PM) Segs-Bands # [1.5-8.1 K/CMM] 0.9 K/CMM *LOW* (01/15/16 3:05 PM) 0.7 K/CMM *LOW* (01/14/16 4:02 AM) 0.2 K/CMM *LOW* (01/12/16 3:38 PM) Lymphocytes # [1.0-5.5 K/CMM] 0.3 K/CMM (01/15/16 3:05 PM) 0.5 K/CMM (01/14/16 4:02 AM) 0.6 K/CMM (01/12/16 3:38 PM) Monocytes # [0.0-0.8 K/CMM] Normal (01/14/16 4:02 AM) RBC Morph Normal (01/14/16 4:02 AM) Plt Morph MOLECULAR DIAGNOSTIC 1 2 3 Most recent to oldest [Reference Range]: Negative (01/14/16 10:34 AM) C difficile DNA [Negative] VIRAL - SEROLOGY 1 2 3 Most recent to oldest [Reference Range]: Negative (01/14/16 10:51 AM) Influ A [Negative] Negative (01/14/16 10:51 AM) Influ B [Negative] Immunizations No data available for this section Procedures Procedure Date Related Diagnosis Body Site Cholecystectomy Hysterectomy Tubal ligation Social History Social History Type Response Alcohol Never Smoking Status Lives with someone who smok es; Cigarette Smoking Last 365 Days No; Reg Smoking Cessation Counseling No; Never smoker Assessment and Plan No data available for this section
--- OUTSIDE RECORDS SUMMARY | 2020-03-23 08:50 | XMS REPORT | Summary of Care ---
Author Author [facility] Organization [facility] Address Unknown Phone Unavailable Encounter HQ Aleksandrantr_nicole(FIN) [id number] Date(s): 03/23/19 - 03/24/19 [facility] [address] [place] [address]- [phone] Vital Signs No data available for this [...]
--- OUTSIDE RECORDS SUMMARY | 2020-03-23 08:50 | XMS REPORT | Summary of Care ---
Author Author [facility] Organization [facility] Address Unknown Phone Unavailable Encounter HQ Vicentar_nicole(FIN) [id number] Date(s): 01/22/18 - 01/23/18 [facility] [address] [place] [phone] Vital Signs No data available for this [...] Active Medications trazodone 50 mg oral tablet See Instructions, # 270 tab, TAKE 3 TABLETS AT BEDTIME, Pharmacy: [facility] Start Date: 01/22/18 Stop Date: 03/09/18 Status: Discontinued Results No data available for [...]
--- OUTSIDE RECORDS SUMMARY | 2020-03-23 08:50 | XMS REPORT | Summary of Care ---
Author Author [facility] Organization [facility] Address Unknown Phone Unavailable Encounter HQ Aleksandrantr_nicole(FIN) [id number] Date(s): 03/18/19 - 03/19/19 [facility] [address] [place] [address]- Vital Signs No data available for this [...] Tubal ligation4 Completed 1Partial 2in 1972 3in 1972 4in 1976 Social History Social History Type [...]
[2020-03-23] MEDS ORDERED: BUPIVACAINE HCL 0.5% INJ 30 ML VIAL INJ ONE (09:03)
[2020-03-23] MEDS ORDERED: BACITRACIN 50,000 UNIT VIAL ONE (09:04)
[2020-03-23] MEDS ORDERED: CEFAZOLIN SOD 1 GM/NS 50ML 100 ML IV ONE (09:22)
[2020-03-23] MEDS ORDERED: NALOXONE HCL INJ 0.4 MG/ML AMP IV PRN (10:30)
[2020-03-23] MEDS ORDERED: DIPHENHYDRAMINE HCL 25 MG CAP PO PRN (10:30)
[2020-03-23] MEDS ORDERED: ONDANSETRON HCL INJ 2MG/ML 2ML 2 MG/ML VIAL IV PRN (10:30)
[2020-03-23] MEDS ORDERED: PROMETHAZINE HCL (IM) 25 MG/ML VIAL ONE (10:47)
[2020-03-23] MEDS ORDERED: MEPERIDINE HCL INJ 25 MG/ML VIAL ONE ×2 (10:47→11:00)
[2020-03-23] MEDS ORDERED: HYDROMORPHONE 1MG/1ML INJ ONE (10:53)
[2020-03-23] MEDS: MORPHINE SULFATE 1 MG/ML 30ML PCA IV PRN (11:18)
--- OUTSIDE RECORDS SUMMARY | 2020-03-23 13:04 | XMS REPORT | Continuity of Care Document ---
Author Author [employer] Organization [employer] Address Unknown Phone Unavailable Care Team Providers Care Cold Type Artist Name Role Phone Leondra music Information [employer] Unavailable Un available Problems Problem Status Onset Date Classification Date Reported Comments Source Escherichia coli (organism) Ac tive 01/12/2016 Problem 01/28/2020 urine, ESBL=, 01/12/16 Problem added by Discern Expert. 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 [facility] Segura's esophagus (disorder) Resolved Problem [facility] History of - hysterectomy (context-dependent category) Resolved Problem 01/28/2020 [facility] History of - tubal ligation (context-dep endent category) Resolved Pr oblem 01/28/2020 [facility] Hypertensive disorder, systemic arterial (disorder) Active Problem 01/28/2020 [facility] Hypercholesterolemia (disorder) Active Problem [facility] Injury of gallbladder during surgery (disorder) Resolved Problem 01/28/2020 removal of gallblad panfilo [facility] Multiple sclerosis (disorder) Active Problem [facility] HYPO-OSMOLALITY AND HYPONATREMIA Active [facility] Medications Medication Details Route Status Patient Instructions Ordering Provider Order Date Source trazodone 150 mg oral tablet = 1 tab, PO, Bedtime, # 90 tab, 2 Refill(s), Pharmacy: [facility] Active 12/16/2018 [facility] Lorazepam 1 MG Oral Tablet 1 m g = 1 tab, PO, BID, PRN Anxiety, # 180 tab, 0 Refill(s), called to pharmacy Active 11/25/2018 [facility] OXcarbazepine 300 mg oral tablet 300 mg = 1 tab, PO, BID, # 180 tab, 3 Refill(s), Pharmacy: [facility] Active 08/24/2018 [facility] amitriptyline 25 mg oral tablet 25 mg = 1 tab, PO, Bedtime, # 90 tab, 3 Refill(s), Pharmacy: [facility] Active 08/24/2018 [facility] Lorazepam 1 MG Oral Tablet 1 m g = 1 tab, PO, BID, PRN Anxiety, # 180 tab, 3 Refill(s) No Longer Active 08/24/2018 [facility] trazodone 150 mg oral tablet 1 50 mg = 1 tab, PO, Bedtime, # 30 tab, 3 Refill(s), Pharmacy: [facility] Active 08/24/2018 [facility] sucralfate 1 g oral tablet 1 g m = 1 tab, PO, QID-Before Meals, 0 Refill(s) Active 08/24/2018 [facility] losartan 100 mg oral tablet 10 [...] Bedtime, # 180 tab, 3 Refill(s), Pharmacy: [facility] Active 03/09/2018 [facility] amitriptyline 25 mg oral tablet 25 mg = 1 tab, PO, Bedtime, # 90 tab, 3 Refill(s), Pharmacy: [facility] Active 03/09/2018 [facility] OXcarbazepine 300 mg oral tablet 300 mg = 1 tab, PO, BID, # 180 tab, 3 Refill(s), Pharmacy: [facility] Active 03/09/2018 [facility] Trazodone Hydrochloride 50 MG Oral Tablet See Instructions, # 270 tab, TAKE 3 TABLETS AT BEDTIME, Pharmacy: [facility] No Longer Active 01/22/2018 [facility] Trazodone Hydrochloride 50 MG Oral Tablet 150 mg = 3 tab, PO, Bedtime, # 270 tab, 0 Refill(s), Pharmacy: [facility] [id number] No Longer Active 01/06/2018 [facility] Clonidine Hydrochloride 0.1 MG Oral Tablet 0.1 mg, Route: PO, Drug form: TAB, ONCE, Dosing Weight 66.818, kg, Priority: STAT, Start date: 01/18/16 19:29:00, Stop date: 01/18/16 19:29:00 Inactive 01/19/2016 [facility] Tylenol 650 mg, Route: PO, King g form: TAB, ONCE, Dosing Weight 66.818, kg, Priority: STAT, Start date: 01/18/16 18:48:00, Stop date: 01/18/16 18:48:00 Inactive 01/19/2016 [facility] valsartan 160 mg oral tablet 1 60 mg = 1 tab, PO, Daily, # 30 tab, 0 Refill(s) Active 01/17/2016 [facility] doxycycline hyclate 100 mg oral tablet 100 mg = 1 tab, PO, [id number], # 14 tab, 0 Refill(s) No Longer Active 01/17/2016 [facility] Doxycycline Notes: NO MILK/ANT ACIDS/IRON Take 1 hour before or 2 hours after dairy products Inactive 01/17/2016 [facility] normal saline 0.9% IV 1,000 mL 1,000 mL, Rate: 50 ml/hr, Infuse over: 20 hr, Route: IV, Dosing Weight 66.818 kg, Total Volume: 1,000, Start date: 01/16/16 20:25:00, Duration: 30 day, Stop date: 02/15/16 20:24:00 No Longer Active 01/17/2016 [facility] Invanz Notes: (Same as: Guy ) Refrigerate. NOT COMPATIBLE WITH D5W. Stable in refrigerator for 24 hours MEDICATION WASTE Product Size: 1000 mg Product Wasted: ___ mg No Longer Active 01/16/2016 [facility] potassium chloride Notes: (Rodo e as: K-Dur 20) "Do Not Crush" With food and full glass of water Inactive 01/16/2016 [facility] Albuterol 0.833 MG/ML / Ipratropium Brom collin 0.167 MG/ML Inhalant Solution [DuoNeb] Notes: (Same as: Duoneb) No Longer Active 01/16/2016 [facility] Rocephin Notes: (Same As: Florencio phin). Use with 100 mL NS and infuse over 30 min MEDICATION WASTE Product Size: 1000 mg Product Wasted: ___ mg No Longer Active 01/15/2016 [facility] 24 HR Metoprolol Tartrate 50 MG Extended Release Tablet [Toprol] Notes: (Same as: Lopressor) No Longer Active 01/14/2016 [facility] valsartan Notes: Same as Diovan No Longer Active 01/14/2016 [facility] Hydrochlorothiazide 25 MG / valsartan 16 0 MG Oral Tablet 1 tab, Route: PO, Drug Form: TAB, Dosing Weight 66.818, kg, Daily, Start date: 01/14/16 9:00:00, Duration: 30 day, Stop date: 02/12/16 9:00:00 No Longer Active 01/14/2016 [facility] Zetia Notes: (Same as: Zetia) No Longer Active 01/14/2016 [facility] Folic Acid 0.4 mg, 1 tab, Rout e: PO, Drug form: TAB, Daily, Dosing Weight 66.818, kg, Start date: 01/14/16 9:00:00, Duration: 30 day, Stop date: 02/12/16 9:00:00 N o Longer Active 01/14/2016 [facility] Vitamin B12 Notes: (Same As: V itamin B12) No Longer Active 01/14/2016 [facility] calcium-vitamin D 600 mg-200 units oral tablet Notes: (Same As: Gurpreet-D, OsCal-D, Oyster Calcium) No Longer Active 01/14/2016 [facility] Amoxicillin 875 MG / Clavulanate 125 MG Oral Tablet [Augmentin 875-mg] 1 tab, Route: PO, Drug Form: TAB, Dosing Weight 66.818, kg, Q12H, Pt.'s home Meds, Start date: 01/13/16 21:00:00, Duration: 30 day, Stop date: 02/12/16 9:00:00 Inactive 01/14/2016 [facility] Augmentin 875mg Tablet Augment in 875mg Tablet, 1 tab, Drug form: MISC, Route: PO, Q12H, 01/13/16 21:00:00, Duration: 30 day, Stop date: 02/12/16 9:00:00 No Longer Active 01/14/2016 [facility] Trazodone Hydrochloride 50 MG Oral Tablet Notes: (Same As: Desyrel) No Longer Active 01/14/2016 [facility] Pepcid Notes: (Same as: Pepcid) No Longer Active 01/13/2016 [facility] Ranitidine 150 MG Oral Tablet 150 mg, 1 tab, Route: PO, Drug form: TAB, BID, Dosing Weight 66.818, kg, Start date: 01/13/16 17:00:00, Duration: 30 day, Stop date: 02/12/16 9:00:00 Inactive 01/13/2016 [facility] pantoprazole Notes: Tablet vero uld not be chewed or crushed. (Same as: Protonix) N o Longer Active 01/13/2016 [facility] Trileptal Notes: Do not crush or chew. (Same as: Trileptal) No Longer Active 01/13/2016 [facility] Lorazepam Notes: (Same as: Ati van) No Longer Active 01/13/2016 [facility] Amitriptyline Notes: (Same as: Elavil) No Longer Active 01/13/2016 [facility] 24 HR Metoprolol Tartrate 50 MG Extended Release Tablet [Toprol] Notes: (Same as: Lopressor) No Longer Active 01/13/2016 [facility] potassium chloride Notes: (Rodo e as: K-Dur 20) "Do Not Crush" With food and full glass of water Inactive 01/13/2016 [facility] Tylenol Notes: Do not exceed 4 gm/day. (Same as: Tylenol) No Longer Active 01/13/2016 [facility] Saline Flush 0.9% Notes: (Same as: BD Posiflush) No Longer Active 01/13/2016 [facility] Sodium Chloride 0.154 MEQ/ML Injectable Solution 1,000 mL, Rate: 75 ml/hr, Infuse over: 13.3 hr, Route: IV, Dosing Weight 66.818 kg, Total Volume: 1,000, Start date: 01/12/16 21:35:00, Stop date: 02/11/16 21:34:00 No Longer Active 01/13/2016 [facility] Sodium Chloride 0.154 MEQ/ML Injectable Solution 1,000 mL, 1,000 ml/hr, Infuse Over: 1 hr, Route: IV, ONCE, Priority: STAT, Dosing Weight 66.818 kg, Start date: 01/12/16 18:21:00, Duration: 1 doses or times, Stop date: 01/12/16 18:21:00 Inactive 01/13/2016 [facility] Zofran Notes: (Same as: Kimi ) MEDICATION WASTE Product Size: 4 mg Product Wasted: ___ mg Inactive 01/12/2016 [facility] Sodium Chloride 0.154 MEQ/ML Injectable Solution 1,000 mL, 1,000 ml/hr, Infuse Over: 1 hr, Route: IV, 1,000, Drug form: INJ, ONCE, Priority: STAT, Dosing Weight 66.818 kg, Start date: 01/12/16 14:30:00, Duration: 1 doses or times, Stop date: 01/12/16 14:30:00 Inactive 01/12/2016 [facility] metoprolol extended release No david: (Same as: Toprol XL) May split tab, but do not crush. Inactive 10/04/2014 [facility] Lorazepam Notes: (Same as: Siddharth valenzuela) Inactive 10/04/2014 [facility] Hydrochlorothiazide 25 MG / valsartan 16 0 MG Oral Tablet 1 tab, Route: PO, Drug Form: TAB, Dosing Weight 59.091, kg, Daily, Start date: 10/04/14 9:00:00, Duration: 30 day, Stop date: 11/02/14 9:00:00 No Longer Active 10/04/2014 [facility] Folic Acid 0.4 mg, 1 tab, Rout e: PO, Drug form: TAB, Daily, Dosing Weight 59.091, kg, Start date: 10/04/14 9:00:00, Duration: 30 day, Stop date: 11/02/14 9:00:00 Inactive 10/04/2014 [facility] Zetia Notes: (Same as: Zetia) Inactive 10/04/2014 [facility] Pepcid Notes: (Same as: Pepcid) Inactive 10/04/2014 [facility] hydrochlorothiazide 25 mg oral tablet Notes: (Same as: Hydrodiuril) With food. Inactive 10/04/2014 [facility] Diovan Notes: Same as Diovan Inactive 10/04/2014 [facility] Ranitidine 150 MG Oral Tablet 150 mg, 1 tab, Route: PO, Drug form: TAB, BID, Dosing Weight 59.091, kg, Start date: 10/04/14 9:00:00, Duration: 30 day, Stop date: 11/02/14 17:00:00 No Longer Active 10/04/2014 [facility] Trileptal Notes: Do not crush or chew. (Same as: Trileptal) Inactive 10/04/2014 [facility] pantoprazole Notes: Tablet vero uld not be chewed or crushed. (Same as: Protonix) Inactive 10/04/2014 [facility] nitroglycerin 0.4 mg sublingual tablet Notes: (Same as:Nitroquick, Nitrostat) "Do Not Crush" Sublingual tablet No Longer Active 10/04/2014 [facility] atropine 0.5 mg, 5 mL, Route: IVP, Drug form: INJ, PRN, PRN Bradycardia, Start date: 10/03/14 22:14:00, Duration: 30 day, Stop date: 11/02/14 22:13:00 No Longer Active 10/04/2014 [facility] Ondansetron Notes: (Same as: True red) No Longer Active 10/04/2014 [facility] Amitriptyline Notes: (Same as: Elavil) No Longer Active 10/04/2014 [facility] Trazodone Hydrochloride 50 MG Oral Tablet Notes: (Same As: Desyrel) No Longer Active 10/04/2014 [facility] Restoril Notes: (Same As: Rest oril) No Longer Active 10/04/2014 [facility] Tylenol Notes: Do not exceed 4 gm/day. (Same as: Tylenol) No Longer Active 10/04/2014 [facility] Ambien 5 mg, Route: PO, Bedtim e, Dosing Weight 59.091, kg, PRN Insomnia, Start date: 10/03/14 19:38:00, Duration: 30 day, Stop date: 11/02/14 19:37:00 Inactive 10/04/2014 [facility] ezetimibe 10 MG Oral Tablet [Zetia] 10 mg = 1 tab, PO, Daily Active 10/04/2014 [facility] Calcium Carbonate 1500 MG / Cholecalcife rol 800 UNT Oral Tablet [Caltrate Plus D 600/800] 1 tab, PO, Daily Active 10/04/2014 [facility] folic acid 0.4 mg oral tablet 0.4 mg = 1 tab, PO, Daily Active 10/04/2014 [facility] Vitamin B12 500 mcg oral tablet 500 microgram = 1 tab, PO, Daily Active 10/04/2014 [facility] Ranitidine 150 MG Oral Tablet 150 mg = 1 tab, PO, BID Active 10/04/2014 [facility] pantoprazole 40 mg oral enteric coated tablet 40 mg = 1 tab, PO, BID Active 10/04/2014 [facility] metoprolol 50 mg oral tablet, extended release 50 mg = 1 tab, PO, Bedtime Active 10/04/2014 [facility] Hydrochlorothiazide 25 MG / valsartan 16 0 MG Oral Tablet 1 tab, PO, Daily Active 10/04/2014 [facility] Trazodone Hydrochloride 50 MG Oral Tablet 150 mg = 3 tab, PO, Bedtime Active 10/04/2014 [facility] oxcarbazepine 300 MG Oral Tablet [Trileptal] 300 mg = 1 tab, PO, BID Active 10/04/2014 [facility] amitriptyline 25 mg oral tablet 25 mg = 1 tab, PO, Bedtime Active 10/04/2014 [facility] LORazepam 1 mg oral tablet 1 m g = 1 tab, PO, BID Active 10/04/2014 [facility] aspirin 324 mg, Route: CHEW, D rug form: CHEWTAB, ONCE, Dosing Weight 59.091, kg, Priority: STAT, Start date: 10/03/14 18:34:00, Stop date: 10/03/14 18:34:00 Inactive 10/04/2014 [facility] Valsartan-Hydrochlorothiazide 160-25 MG Oral Tablet ; Start Date: 08/10/2013; End Date: (Active) Active 08/10/2013 [facility] Valsartan-Hydrochlorothiazide 160-12.5 MG Oral Tablet ; Start Date: 08/10/2013 (Active) Active 08/10/2013 [facility] Diovan 160 MG Oral Tablet ; St art Date: 07/01/2013; End Date: (Active) Active 07/01/2013 [facility] LORazepam 1 MG Oral Tablet (A ctive) Active [facility] Trileptal 300 MG Oral Tablet (Active) Active [facility] Evoxac 30 MG Oral Capsule (Ac tive) Active [facility] TraZODone HCl 150 MG Oral Tablet (Active) Active [facility] Caltrate 600+D TABS (Active) Active [facility] Folic Acid TABS (Active) Active [facility] Vitamin B-12 TABS (Active) Active [facility] NexIUM 40 MG Oral Packet (Act ramakrishna) Active [facility] Amitriptyline HCl 25 MG Oral Tablet (Active) Active [facility] Allergies, Adverse Reactions, Alerts Substance Category Reaction Severity Reaction type Status Date Reported Comments Source gabapentin Assertion HALLUCINATIONS Severe Propensity to adverse reactions to drug Active 02/05/2017 [facility] Not Known [facility] Sulfa Drugs drug allergy drug allergy Active [facility] sulfa drugs Assertion Drug allergy Active [facility] Immunizations Immunization Date Given Site Status Last Updated Comments Source Fluzone Intramuscular Injectable 08/10/2013 completed [facility] Influenza 10/09/2012 completed [facility] Tdap 06/15/2009 completed [facility] Results Order Name Results Value Reference Range Date Interpretation Comments Source CHEM PANEL Creatinine Lvl 0.55 0.50 - 1.40 01/15/2016 [facility] CHEM PANEL Potassium Lvl 3.3 3.5 - 5.1 01/15/2016 [facility] CHEM PANEL Sodium Lvl 134 135 - 145 01/15/2016 [facility] CHEM PANEL Glucose Lvl 137 70 - 99 01/15/2016 [facility] CHEM PANEL BUN 7 7 - 22 01/15/2016 [facility] CHEM PANEL Calcium Lvl 8.1 8.5 - 10.5 01/15/2016 [facility] CHEM PANEL CO2 27 24 - 32 01/15/2016 [facility] CHEM PANEL Chloride Lvl 98 95 - 109 01/15/2016 [facility] CHEM PANEL eGFR 102 01/15/2016 Result Comment: [...] should be multiplied by the estimated BMI. [facility] CHEM PANEL AGAP 12.3 10.0 - 20.0 01/15/2016 [facility] HEMATOLOGY Monocytes # 0.3 0.0 - 0.8 01/15/2016 [facility] HEMATOLOGY Monocytes 13.6 2.0 - 12.0 01/15/2016 [facility] Lymphocytes 40.3 20.0 - 40.0 01/15/2016 [facility] Segs-Bands # 1.0 1.5 - 8.1 01/15/2016 [facility] Segs 44.0 45.0 - 75.0 01/15/2016 [facility] HEMATOLOGY Basophils 0.9 0.0 - 1.0 01/15/2016 [facility] Eosinophils 1.2 0.0 - 4.0 01/15/2016 [facility] Lymphocytes # 0.9 1.0 - 5.5 01/15/2016 [facility] RDW 13.9 11.5 - 14.5 01/15/2016 [facility] Platelet 184 133 - 450 01/15/2016 [facility] MPV 7.5 7.4 - 10.4 01/15/2016 [facility] RBC 3.69 4.20 - 5.40 01/15/2016 [facility] WBC 2.3 3.7 - 10.4 01/15/2016 [facility] Hct 31.3 36.0 - 48.0 01/15/2016 [facility] Hgb 10.1 12.0 - 16.0 01/15/2016 [facility] MCV 84.7 80.0 - 98.0 01/15/2016 [facility] MCHC 32.4 32.0 - 36.0 01/15/2016 [facility] MCH 27.4 27.0 - 31.0 01/15/2016 [facility] URINE CHEM U Osmolality 162 300 - 800 01/14/2016 [facility] URINE CHEM U Sodium 46 01/14/2016 [facility] URINE CHEM U Creatinine 15.70 01/14/2016 [facility] VIRAL - SEROLOGY Influ A Negative (01/14/16 10:51 AM) Negative 01/14/2016 [facility] VIRAL - SEROLOGY Influ B Negative (01/14/16 10:51 AM) Negative 01/14/2016 [facility] MOLECULAR DIAGNOSTIC C difficile DNA Negative (01/14/16 10:34 AM) Negative 01/14/2016 [facility] URINE AND STOOL Fecal Leukocyte None Seen (01/14/16 10:34 AM) 01/14/2016 [facility] URINE AND STOOL Occult Bld Stl Negative 1 (01/14/16 10:34 AM) Negative 01/14/2016 Result Comment: Called [facility] at 01/14/2016 11:18. Initially put in positive when should have hit negative.
ka [facility] CARDIAC ENZYMES Troponin-I 0.03 0.00 - 0.40 01/14/2016 [facility] CHEM PANEL A/G Ratio 1.2 0.7 - 1.6 01/14/2016 [facility] CHEM PANEL AST 15 0 - 37 01/14/2016 [facility] CHEM PANEL ALT 18 0 - 65 01/14/2016 [facility] CHEM PANEL Calcium Lvl 7.6 8.5 - 10.5 01/14/2016 [facility] CHEM PANEL B/C Ratio 13 6 - 25 01/14/2016 [facility] CHEM PANEL Albumin Lvl 3.0 3.5 - 5.0 01/14/2016 [facility] CHEM PANEL Total Protein 5.6 6.4 - 8.4 01/14/2016 [facility] CHEM PANEL Globulin 2.6 2.0 - 4.0 01/14/2016 [facility] CHEM PANEL eGFR 108 01/14/2016 Result Comment: [...] should be multiplied by the estimated BMI. [facility] CHEM PANEL Alk Phos 48 39 - 136 01/14/2016 [facility] CHEM PANEL Bili Total 0.7 0.2 - 1.3 01/14/2016 [facility] CHEM PANEL Chloride Lvl 95 95 - 109 01/14/2016 [facility] CHEM PANEL CO2 28 24 - 32 01/14/2016 [facility] CHEM PANEL AGAP 10.4 10.0 - 20.0 01/14/2016 [facility] CHEM PANEL Sodium Lvl 130 135 - 145 01/14/2016 [facility] CHEM PANEL Potassium Lvl 3.4 3.5 - 5.1 01/14/2016 [facility] CHEM PANEL Glucose Lvl 89 70 - 99 01/14/2016 [facility] CHEM PANEL BUN 6 7 - 22 01/14/2016 [facility] CHEM PANEL Creatinine Lvl 0.46 0.50 - 1.40 01/14/2016 [facility] HEMATOLOGY RDW 13.6 11.5 - 14.5 01/14/2016 [facility] HEMATOLOGY MPV 7.9 7.4 - 10.4 01/14/2016 [facility] Platelet 162 133 - 450 01/14/2016 [facility] RBC 3.27 4.20 - 5.40 01/14/2016 [facility] WBC 2.0 3.7 - 10.4 01/14/2016 [facility] Hct 27.4 36.0 - 48.0 01/14/2016 [facility] Hgb 9.1 12.0 - 16.0 01/14/2016 [facility] MCV 83.8 80.0 - 98.0 01/14/2016 [facility] MCHC 33.3 32.0 - 36.0 01/14/2016 [facility] MCH 27.9 27.0 - 31.0 01/14/2016 [facility] Eosinophils 0.2 0.0 - 4.0 01/14/2016 [facility] Segs-Bands # 0.7 1.5 - 8.1 01/14/2016 [facility] HEMATOLOGY Basophils 0.8 0.0 - 1.0 01/14/2016 [facility] Lymphocytes # 0.7 1.0 - 5.5 01/14/2016 [facility] Monocytes # 0.5 0.0 - 0.8 01/14/2016 [facility] HEMATOLOGY Monocytes 26.0 2.0 - 12.0 01/14/2016 [facility] HEMATOLOGY Lymphocytes 36.0 20.0 - 40.0 01/14/2016 [facility] HEMATOLOGY Segs 37.0 45.0 - 75.0 01/14/2016 [facility] HEMATOLOGY Plt Morph Dayanara l (01/14/16 4:02 AM) 01/14/2016 [facility] HEMATOLOGY RBC Morph Dayanara l (01/14/16 4:02 AM) 01/14/2016 [facility] CARDIAC ENZYMES Troponin-I 0.03 0.00 - 0.40 01/14/2016 [facility] CARDIAC ENZYMES Troponin-I <0.02 0.00 - 0.40 01/13/2016 [facility] CHEM PANEL eGFR 102 01/13/2016 Result Comment: [...] should be multiplied by the estimated BMI. [facility] CHEM PANEL A/G Ratio 1.1 0.7 - 1.6 01/13/2016 [facility] CHEM PANEL Globulin 2.8 2.0 - 4.0 01/13/2016 [facility] CHEM PANEL AGAP 11.3 10.0 - 20.0 01/13/2016 [facility] CHEM PANEL B/C Ratio 15 6 - 25 01/13/2016 [facility] CHEM PANEL Alk Phos 56 39 - 136 01/13/2016 [facility] CHEM PANEL AST 16 0 - 37 01/13/2016 [facility] CHEM PANEL Bili Total 0.2 0.2 - 1.3 01/13/2016 [facility] CHEM PANEL Albumin Lvl 3.2 3.5 - [...] Albumin Lvl 4.1 3.5 - 5.0 01/12/2016 [facility] HEMATOLOGY Lymphocytes # 0.2 1.0 - 5.5 01/12/2016 [facility] HEMATOLOGY Segs-Bands # 4.0 1.5 - 8.1 01/12/2016 [facility] HEMATOLOGY Monocytes # 0.6 0.0 - 0.8 01/12/2016 [facility] HEMATOLOGY Basophils 0.9 0.0 - 1.0 01/12/2016 [facility] HEMATOLOGY Eosinophils 1.0 0.0 - 4.0 01/12/2016 [facility] HEMATOLOGY Segs 81.4 45.0 - 75.0 01/12/2016 [facility] HEMATOLOGY Monocytes 12.3 2.0 - 12.0 01/12/2016 [facility] HEMATOLOGY Lymphocytes 4.4 20.0 - 40.0 01/12/2016 [facility] HEMATOLOGY RDW 13.6 11.5 - 14.5 01/12/2016 [facility] MCV 82.6 80.0 - 98.0 01/12/2016 [facility] MCHC 33.3 32.0 - 36.0 01/12/2016 [facility] MCH 27.5 27.0 - 31.0 01/12/2016 [facility] RBC 4.13 4.20 - 5.40 01/12/2016 [facility] WBC 4.9 3.7 - 10.4 01/12/2016 [facility] Hgb 11.4 12.0 - 16.0 01/12/2016 [facility] MPV 7.6 7.4 - 10.4 01/12/2016 [facility] Platelet 256 133 - 450 01/12/2016 [facility] Hct 34.1 36.0 - 48.0 01/12/2016 [facility] URINE AND STOOL UA Urobilinogen <=1.0 mg/dL 0.1 - 1.0 01/12/2016 [facility] URINE AND STOOL UA Color Ltyellow 01/12/2016 [facility] URINE AND STOOL UA Nitrite Negative (01/12/16 3:38 PM) Negative 01/12/2016 [facility] URINE AND STOOL UA Blood Negative (01/12/16 3:38 PM) Negative 01/12/2016 [facility] URINE AND STOOL UA Bili Negative *NA* (01/12/16 3:38 PM) Negative 01/12/2016 [facility] URINE AND STOOL UA Sq Epi Occasional /LPF Few /LPF 01/12/2016 [facility] URINE AND STOOL UA Leuk Est Trace *ABN* (01/12/16 3:38 PM) Negative 01/12/2016 [facility] URINE AND STOOL UA RBC 7 0 - 2 01/12/2016 [facility] URINE AND STOOL UA WBC 3 0 - 5 01/12/2016 [facility] URINE AND STOOL UA Mucus Few /LPF None Seen /LPF 01/12/2016 [facility] URINE AND STOOL UA Turbidity Clear (01/12/16 3:38 PM) Clear 01/12/2016 [facility] URINE AND STOOL UA Spec Grav 1.018 <=1.030 01/12/2016 [facility] URINE AND STOOL UA Protein Negative mg/dL Negative mg/dL 01/12/2016 [facility] URINE AND STOOL UA pH 6.0 5.0 - 8.0 01/12/2016 [facility] URINE AND STOOL UA Ketones Negative mg/dL Negative mg/dL 01/12/2016 [facility] URINE AND STOOL UA Glucose Negative mg/dL Negative mg/dL 01/12/2016 [facility] [address] CARDIAC ENZYMES Total CK 58 12 - 191 10/04/2014 [facility] CARDIAC ENZYMES Troponin-I <0.02 0.00 - 0.40 10/04/2014 [facility] CHEM PANEL eGFR 94 10/04/2014 <sup>1</sup>Result Comment: [...] should be multiplied by the estimated BMI. [facility] CHEM PANEL Albumin Lvl 3.4 3.5 - 5.0 10/04/2014 [facility] CHEM PANEL Globulin 2.8 2.0 - 4.0 10/04/2014 [facility] CHEM PANEL A/G Ratio 1.2 0.7 - 1.6 10/04/2014 [facility] CHEM PANEL Total Protein 6.2 6.4 - 8.4 10/04/2014 [facility] CHEM PANEL Glucose Lvl 99 70 - 99 10/04/2014 <sup>3</sup>Interpretive Data: Adult ref erence range values reflect the clinical guidelines
of the [place] [employer]. [place] CHEM PANEL BUN 22 [...] PANEL AGAP 10.9 10.0 - 20.0 10/04/2014 [facility] CHEM PANEL Calcium Lvl 8.4 8.5 - 10.5 10/04/2014 [facility] CHEM PANEL B/C Ratio 31 6 - 25 10/04/2014 [facility] CHEM PANEL Creatinine Lvl 0.7 0.5 - 1.4 10/04/2014 [facility] CHEM PANEL Sodium Lvl 136 135 - 145 10/04/2014 [facility] CHEM PANEL Chloride Lvl 98 95 - 109 10/04/2014 [facility] CHEM PANEL Potassium Lvl 3.9 3.5 - 5.1 10/04/2014 [facility] HEMATOLOGY MPV 7.6 7.4 - 10.4 10/04/2014 [facility] HEMATOLOGY MCHC 34.2 32.0 - 36.0 10/04/2014 [facility] HEMATOLOGY MCH 28.6 27.0 - 31.0 10/04/2014 [facility] HEMATOLOGY Platelet 282 133 - 450 10/04/2014 [facility] HEMATOLOGY RDW 13.7 11.5 - 14.5 10/04/2014 [facility] HEMATOLOGY WBC 6.2 3.7 - 10.4 10/04/2014 [facility] HEMATOLOGY RBC 3.62 4.20 - 5.40 10/04/2014 [facility] HEMATOLOGY Hgb 10.4 12.0 - 16.0 10/04/2014 [facility] HEMATOLOGY Hct 30.4 36.0 - 48.0 10/04/2014 [facility] HEMATOLOGY MCV 83.8 80.0 - 98.0 10/04/2014 [facility] HEMATOLOGY Segs-Bands # 3.7 1.5 - 8.1 10/04/2014 [facility] HEMATOLOGY Lymphocytes # 1.8 1.0 - 5.5 10/04/2014 [facility] HEMATOLOGY Basophils 0.4 0.0 - 1.0 10/04/2014 [facility] HEMATOLOGY Monocytes 9.8 2.0 - 12.0 10/04/2014 [facility] HEMATOLOGY Eosinophils 1.8 0.0 - 4.0 10/04/2014 [facility] HEMATOLOGY Lymphocytes 28.2 20.0 - 40.0 10/04/2014 [facility] HEMATOLOGY Segs 59.8 45.0 - 75.0 10/04/2014 [facility] HEMATOLOGY Eosinophils # 0.1 0.0 - 0.5 10/04/2014 [facility] HEMATOLOGY Monocytes # 0.6 0.0 - 0.8 10/04/2014 [facility] LIPIDS VLDL 35 10/04/2014 [facility] LIPIDS LDL (Calculated) 132 <=99 mg/dL 10/04/2014 [facility] LIPIDS HDL 44 >=61 mg/dL 10/04/2014 [facility] LIPIDS Trig 175 <=149 mg/dL 10/04/2014 [facility] LIPIDS Chol 211 <=199 mg/dL 10/04/2014 [facility] LIPIDS CHD Risk 4.80 3.90 - 5.80 10/04/2014 [facility] CARDIAC ENZYMES Total CK 62 12 - 191 10/04/2014 [facility] CARDIAC ENZYMES Troponin-I <0.02 0.00 - 0.40 10/04/2014 [facility] CARDIAC ENZYMES Total CK 65 12 - 191 10/04/2014 [facility] CARDIAC ENZYMES Troponin-I <0.02 0.00 - 0.40 10/04/2014 [facility] CARDIAC ENZYMES CK MB Index 1.2 0.0 - 2.5 10/03/2014 [facility] CARDIAC ENZYMES CK MB 0.9 0.5 - 3.6 10/03/2014 [facility] CHEM PANEL eGFR 61 10/03/2014 <sup>2</sup>Result Comment: [...] should be multiplied by the estimated BMI. [facility] CHEM PANEL Calcium Lvl 8.4 8.5 - 10.5 10/03/2014 [facility] CHEM PANEL Albumin Lvl 3.7 3.5 - 5.0 10/03/2014 [facility] CHEM PANEL B/C Ratio 19 6 - 25 10/03/2014 [facility] CHEM PANEL AGAP 11.9 10.0 - 20.0 10/03/2014 [facility] CHEM PANEL BUN 19 7 - 22 10/03/2014 [facility] CHEM PANEL Creatinine Lvl 1.0 0.5 - 1.4 10/03/2014 [facility] CHEM PANEL Sodium Lvl 133 135 - 145 10/03/2014 [facility] CHEM PANEL Chloride Lvl 96 95 - 109 10/03/2014 [facility] CHEM PANEL Potassium Lvl 3.9 3.5 - 5.1 10/03/2014 [facility] CHEM PANEL CO2 29 24 - 32 10/03/2014 [facility] CHEM PANEL Glucose Lvl 94 70 - 99 10/03/2014 <sup>4</sup>Interpretive Data: Adult ref erence range values reflect the clinical guidelines
of the [place] [employer]. [facility] CHEM PANEL Globulin 3.1 2.0 - 4.0 10/03/2014 [facility] CHEM PANEL A/G Ratio 1.2 0.7 - 1.6 10/03/2014 [facility] CHEM PANEL AST 9 0 - 37 10/03/2014 [facility] CHEM PANEL Alk Phos 71 39 - 136 10/03/2014 [facility] CHEM PANEL Bili Total 0.1 0.2 - 1.3 10/03/2014 [facility] CHEM PANEL ALT 27 0 - 65 10/03/2014 [facility] CHEM PANEL Total Protein 6.8 6.4 - 8.4 10/03/2014 [facility] HEMATOLOGY MCHC 32.1 32.0 - 36.0 10/03/2014 [facility] HEMATOLOGY RDW 13.8 11.5 - 14.5 10/03/2014 [facility] HEMATOLOGY MPV 7.5 7.4 - 10.4 10/03/2014 [facility] HEMATOLOGY Platelet 321 133 - 450 10/03/2014 [facility] HEMATOLOGY WBC 7.0 3.7 - 10.4 10/03/2014 [facility] Hgb 10.1 12.0 - 16.0 10/03/2014 [facility] RBC 3.72 4.20 - 5.40 10/03/2014 [facility] Hct 31.4 36.0 - 48.0 10/03/2014 [facility] MCH 27.1 27.0 - 31.0 10/03/2014 [facility] MCV 84.5 80.0 - 98.0 10/03/2014 [facility] Monocytes # 0.7 0.0 - 0.8 10/03/2014 [facility] HEMATOLOGY Eosinophils # 0.1 0.0 - 0.5 10/03/2014 [facility] Basophils # 0.1 0.0 - 0.2 10/03/2014 [facility] Basophils 0.7 0.0 - 1.0 10/03/2014 [facility] Lymphocytes # 1.5 1.0 - 5.5 10/03/2014 [facility] Segs-Bands # 4.6 1.5 - 8.1 10/03/2014 [facility] Segs 66.2 45.0 - 75.0 10/03/2014 [facility] Monocytes 9.9 2.0 - 12.0 10/03/2014 [facility] Lymphocytes 21.3 20.0 - 40.0 10/03/2014 [facility] Eosinophils 1.9 0.0 - 4.0 10/03/2014 [facility] INR 0.92 0.85 - 1.17 10/03/2014 <sup>5</sup>Interpretive Data: RECOMMEND ED RANGES FOR PROTIME INR:
2.0-3.0 for most medical and surgical thromboembolic states.
2.5-3.5 for artificial heart valves and recurrent embolism.

INR SHOULD BE USED ONLY FOR PATIENTS ON STABLE ANTICOAGULANT THERAPY. [facility] PT 12.3 12.0 - 14.7 10/03/2014 [facility] PTT 26.4 22.9 - 35.8 10/03/2014 <sup>6</sup>Interpretive Data: Heparin T herapeutic Range: 57 - 92 Seconds [facility] Pathology Reports No Data Provided for This [...] No acute brain abnormality is noted. 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 Tortuous atherosclerotic thoracic aorta. Mild lung base atelectasis or infiltrate. No significant pleural effusion or pneumothorax. SL: [id number] 01/13/2016 [facility] Abdomen/Pelvis wo IV contrast CT Study: ABDOMEN/PELVIS [...] and mild divertic ulosis. 4. Hysterectomy. SL: [id number] 01/12/2016 [facility] Chest 1view CXR, portable (1 v iew) HISTORY: Chest pain Comparison is made to 07/06/2010. FINDINGS: The lungs are clear. There are no pleural effusions. The heart and pulmonary vasculature are within normal limits. The regional skeleton is unremarkable. CONCLUSION: 1. No active disease. Coding: Chest 1view CPT code: 21112 SL: 12 Martin Christy M.D. 10/03/2014 [facility] Consultation Notes No Data Provided for This Section Discharge Summaries No Data Provided for This Section History and Physicals No Data Provided for This Section Vital Signs Vital Sign Value Date Comments Source Weight 64.602 08/24/2018 [facility] Heart Rate 63 08/24/2018 [facility] Systolic (mm Hg) 131 08/24/2018 [facility] Diastolic (mm Hg) 75 08/24/2018 [facility] Systolic (mm Hg) 123 03/04/2018 [facility] Diastolic (mm Hg) 80 03/04/2018 [facility] Heart Rate 67 03/04/2018 [facility] Weight 65.057 03/04/2018 [facility] Temperature Oral (F) 98.1 F 01/19/2016 [facility] Respitory Rate 18 01/19/2016 [facility] Systolic (mm Hg) 202 01/19/2016 [facility] Diastolic (mm Hg) 92 01/19/2016 [facility] Heart Rate 78 01/19/2016 [facility] Heart Rate 80 01/19/2016 [facility] Temperature Oral (F) 97.9 F 01/19/2016 [facility] Systolic (mm Hg) 187 01/19/2016 [facility] Diastolic (mm Hg) 104 01/19/2016 [facility] Respitory Rate 18 01/19/2016 [facility] Respitory Rate 18 01/19/2016 [facility] Heart Rate 80 01/19/2016 [facility] Systolic (mm Hg) 187 01/19/2016 [facility] Diastolic (mm Hg) 104 01/19/2016 [facility] Temperature Oral (F) 97.9 F 01/19/2016 [facility] BMI Calculated 27.83 01/18/2016 [facility] Weight 66.818 01/18/2016 [facility] Height 154.94 cm 01/18/2016 [facility] Respitory Rate 14 01/17/2016 [facility] Respitory Rate 20 01/17/2016 [facility] Systolic (mm Hg) 179 01/17/2016 [facility] Diastolic (mm Hg) 79 01/17/2016 [facility] Temperature Oral (F) 97.7 F 01/17/2016 [facility] Heart Rate 60 01/17/2016 [facility] Heart Rate 65 01/17/2016 [facility] Temperature Oral (F) 98.1 F 01/17/2016 [facility] Systolic (mm Hg) 173 01/17/2016 [facility] Diastolic (mm Hg) 91 01/17/2016 [facility] Respitory Rate 18 01/17/2016 [facility] Heart Rate 73 01/17/2016 [facility] Temperature Oral (F) 98.0 F 01/17/2016 [facility] Systolic (mm Hg) 177 01/17/2016 [facility] Diastolic (mm Hg) 81 01/17/2016 [facility] BMI Calculated 27.83 01/13/2016 [facility] Height 154.94 cm 01/13/2016 [facility] Weight 66.818 01/13/2016 [facility] Weight 66.818 01/12/2016 [facility] BMI Calculated 27.83 01/12/2016 [facility] Height 154.94 cm 01/12/2016 [facility] Diastolic (mm Hg) 76 10/04/2014 [facility] Respitory Rate 16 10/04/2014 [facility] Systolic (mm Hg) 116 10/04/2014 [facility] Heart Rate 85 10/04/2014 [facility] Temperature Oral (F) 98.6 F 10/04/2014 [facility] Temperature Oral (F) 98.3 F 10/04/2014 [facility] Respitory Rate 16 10/04/2014 [facility] Systolic (mm Hg) 120 10/04/2014 [facility] Heart Rate 68 10/04/2014 [facility] Diastolic (mm Hg) 73 10/04/2014 [facility] Respitory Rate 16 10/04/2014 [facility] Temperature Oral (F) 97.4 F 10/04/2014 [facility] Heart Rate 76 10/04/2014 [facility] Systolic (mm Hg) 94 10/04/2014 [facility] Diastolic (mm Hg) 61 10/04/2014 [facility] Weight 59.091 10/03/2014 [facility] BMI Calculated 22.36 10/03/2014 [facility] Height 162.56 cm 10/03/2014 [facility] Encounters Location Location Details Encounter Type Encounter Number Reason For Visit Attending Provider ADM Date DC Date Status Source AUDIT [id number] 07/01/2013 07/01/2013 [facility] AUDIT [id number] 08/10/2013 08/10/2013 [facility] AUDIT [id number] 08/11/2013 08/11/2013 [facility] AUDIT [id number] 09/03/2013 09/03/2013 [facility] OBS Observation Patient [id number] Chirag Veronica 10/03/2014 10/04/2014 [facility] Inpatient [id number] Ottoniel Iniguez 01/12/2016 01/17/2016 [facility] Center [id number] Justyna Franks 01/18/2016 01/19/2016 [facility] Outpatient [id number] [facility] 01/13/2017 Active [facility] Outpatient [id number] [facility] 02/06/2017 Active [facility] Outpatient [id number] [facility] 09/08/2017 Active [facility] Phone Message [id number] 01/05/2018 01/07/2018 [facility] Phone Message [id number] 01/22/2018 01/24/2018 [facility] Outpatient [id number] [facility] 03/09/2018 Active [facility] Outpatient [id number] [facility] 03/09/2018 03/10/2018 [facility] Phone Message [id number] 03/11/2018 03/13/2018 [facility] Phone Message [id number] 06/08/2018 06/10/2018 [facility] Outpatient [id number] [facility] 08/24/2018 Active [facility] Outpatient [id number] [facility] 08/24/2018 08/25/2018 [facility] Phone Message [id number] 11/25/2018 11/27/2018 [facility] Phone Message [id number] 03/18/2019 03/20/2019 [facility] Phone Message [id number] 03/23/2019 03/25/2019 [facility] Outpatient [id number] [facility] 07/26/2019 Active [facility] Outpatient [id number] [facility] 07/26/2019 07/27/2019 [facility] Outpatient [id number] [facility] 01/25/2020 Active [facility]rology [facility] Outpatient [id number] [facility] 01/25/2020 01/26/2020 [facility] Outpatient [id number] [facility] 07/27/2020 Active [facility] Procedures Procedure Code Date Perfomer Comments Source Cholecystectomy<sup>2</sup> 38 [id number] in 1972 [facility] partial Hysterectomy<sup>1</sup> [id number] Partial [facility] Tubal ligation<sup>3</sup> 775 69303 in 1976 [facility] Gallbladder operation<sup>3</sup> 80759662 in 1972 [facility] Tubal ligation<sup>4</sup> 775 62193 in 1976 [facility] Cholecystectomy [id number] [facility] Hysterectomy [id number] [facility] Tubal ligation [id number] [facility] Assessment and Plan Assessment and Plan Date [...] F/U in 1-2 weeks in office 10/04/2014 [facility] Plan of Care No Data Provided for This Section Social History Social History Date Source Social History TypeResponse Alcohol Never Employment/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 Substance Abuse Use: None. Smoking Status Never smoker; Lives with someone who smokes; Cigarette Smoking Last 365 Days No; Reg Smoking Cessation Counseling No entered on: 08/24/18 10/04/2014 [facility] Social History TypeResponse Alcohol Never Smoking Status Lives with someone who smokes; Cigarette Smoking Last 365 Days No; Reg Smoking Cessation Counseling No; Never smoker 10/04/2014 [facility] Marital History - Currently (Active) Never A Smoker (Active) Never Drank Alcohol (Active) 09/03/2013 [facility] Family History Value Date S ource Paternal history of Coronary Artery Dise ase (V17.49); (Active) Maternal history of Cancer (Active) Maternal history of Chronic Obstructive Pulmonary Disease (Active) 09/03/2013 [facility] Paternal history of Coronary Artery Dise ase (V17.49); (Active) Maternal history of Cancer (Active) Maternal history of Chronic Obstructive Pulmonary Disease (Active) 08/11/2013 [facility] Paternal history of Coronary Artery Dise ase (V17.49); (Active) Maternal history of Cancer (Active) Maternal history of Chronic Obstructive Pulmonary Disease (Active) 08/10/2013 [facility] Advance Directives Order Name Results Value Date Source Advance Directives Advance Dir ectives No Advance Directives available. 09/03/2013 [facility] Advance Directives Advance Dir ectives No Advance Directives available. 08/11/2013 [facility] Advance Directives Advance Dir ectives No Advance Directives available. 08/10/2013 [facility] Advance Directives Advance Dir ectives No Advance Directives available. 07/01/2013 [facility] Functional Status No Data Provided for This Section
[2020-03-23 15:10] VITALS: BP 133/60
--- NOTE | 2020-03-23 15:10 | NUR ---
Received patient from PACU via stretcher. waiting for patient in room. AAOX3 to time, person, place. Respirations even and unlabored. O2 2L NC. On FOUR H AGENT pump. Left AC IV 20 no signs of infiltration noted. Oriented patient and to room. Instructed to use call light for assistance. Voiced understanding. Side rails upx2, call light within reach. Report given to Manda Brown RN of patient's status. Konstantin BLACK aware initial admission assessment to be completed.
--- NOTE | 2020-03-23 15:10 | Operative Report ---
DATE OF PROCEDURE: 03/23/2020 SURGEON: Jesse Reedre MD PREOPERATIVE DIAGNOSIS: Recurrent incisional hernia. POSTOPERATIVE DIAGNOSIS: Recurrent incisional hernia. PROCEDURES: Repair of recurrent incisional hernia with mesh and lysis of adhesions. IMPORT/EXPORT SPECIALIST: None. ANESTHESIA: General endotracheal. INDICATIONS AND FINDINGS: The patient is a 64-year-old female, who presents with complaints of bulge around her umbilicus site of previous surgery and hernia repair. At Surgery, based on hernia with a fascial defect that was approximately 6 x 8 cm. There was adhesions within the hernia involving omentum, all of which required lysis. TECHNIQUE: After adequate general endotracheal anesthesia, the patient is in supine position, and the abdomen was prepped and draped in a sterile fashion with ChloraPrep solution. Through the previous midline wound incision was made, carried down through subcutaneous tissue, herniated mass was identified. The hernia sac was opened. There was adherent omentum within the hernia sac into the abdominal wall, this was lysed and the fascial defect was completely delineated, it was about 6 x 8 cm with a fascial defect completely delineated. The hernia was repaired using a separate mesh, which had been soaked in antibiotic solution. This was sutured to the undersurface of the fascia in intraperitoneal onlay position with running horizontal mattress suture of 0 Prolene. Once the mesh was in place, the wound was inspected for hemostasis, which was seen to be adequate. The wound was then infiltrated with 0.5% Marcaine, was irrigated with antibiotic solution; inspected once again for hemostasis, which was seen to be adequate. A 19-Armenian Sumit drain was placed into the subcutaneous tissue through a separate stab wound incision. The wound was then closed with 3-0 Vicryl subcutaneous tissue and osbaldo for the skin. Sterile dressing was applied. The patient tolerated the procedure well. Estimated blood loss was 25 mL. There were no complications. All counts were correct and the patient was taken to the recovery room in satisfactory condition. MD JESSICA SamayoaG/MODL /[id number]
[2020-03-23 16:57] VITALS: BP 133/60
[2020-03-23] MEDS ORDERED: LORAZEPAM 1 MG PO SCH (17:00)
[2020-03-23] MEDS ORDERED: NIFEDIPINE 10 MG CAP PO SCH (17:00)
[2020-03-23] MEDS: NIFEDIPINE CR 30 MG TAB PO SCH (17:00)
[2020-03-23] MEDS: PANTOPRAZOLE SOD 40 MG TABEC PO SCH (17:08)
[2020-03-23] MEDS: CEFAZOLIN SOD 1 GM/NS 50ML 50 ML IV SCH ×2 (17:08→23:40)
[2020-03-23] MEDS: LORAZEPAM 1 MG TAB PO SCH (17:08)
[2020-03-23 17:40] VITALS: BP 133/60
[2020-03-23] MEDS ORDERED: ACETAMINOPHEN 1000 MG/100 ML IV PRN (18:00)
--- NOTE | 2020-03-23 19:12 | NUR ---
Report to the oncoming nurse
[2020-03-23] MEDS ORDERED: ONDANSETRON HCL INJ 2MG/ML 2ML 2 MG/ML VIAL ONE (19:16)
[2020-03-23] MEDS ORDERED: DEXAMETHASONE SOD PHOS INJ 4 MG/ML VIAL ONE (19:16)
[2020-03-23] MEDS ORDERED: ROCURONIUM BROMIDE 10 MG/ML 5ML VIAL IV ONE (19:16)
[2020-03-23] MEDS ORDERED: ACETAMINOPHEN 1000 MG/100 ML IV ONE (19:16)
[2020-03-23] MEDS ORDERED: SEVOFLURANE INHAL SOLN 250 ML PEN BTL ONE (19:16)
[2020-03-23] MEDS ORDERED: LIDOCAINE HCL 2% LOCAL INJ 5 ML SDV VIAL INJ ONE (19:16)
[2020-03-23] MEDS ORDERED: PROPOFOL IV EMULSION 10 MG/ML 20 ML VIAL ONE (19:16)
[2020-03-23] MEDS ORDERED: KETOROLAC TROMETHAMINE 30 MG/ML VIAL ONE (19:16)
[2020-03-23] MEDS ORDERED: METOCLOPRAMIDE HCL 10 MG/2ML VIAL ONE (19:16)
[2020-03-23 20:00] VITALS: BP 133/59
[2020-03-23] MEDS ORDERED: NON-FORMULARY MEDICATION (Trazodone Hcl 200 MG) PO SCH (21:00)
[2020-03-23] MEDS ORDERED: OXCARBAZEPINE 450 MG PO SCH (21:00)
[2020-03-23] MEDS ORDERED: OXCARBAZEPINE 300 MG TAB PO SCH (21:00)
[2020-03-23] MEDS: METOPROLOL SUCCINATE 50 MG TAB XL PO SCH (21:14)
[2020-03-23] MEDS: TRAZODONE HCL 50 MG TAB PO SCH (21:14)
--- NOTE | 2020-03-23 22:56 | NUR ---
PAGEDebra ALDRIDGE REGARDING HOME MEDICATIONS. AWAITING CALL BACK.
[2020-03-24] VITALS (8 sets, daily range): BP systolic 106–152; BP diastolic 51–68
--- NOTE | 2020-03-24 05:35 | NUR ---
SPOKE WITH MD ALDRIDGE CONCERNING HOME MEDICATIONS. NEW ORDERS RECEIVED.
[2020-03-24] MEDS: CEFAZOLIN SOD 1 GM/NS 50ML 50 ML IV SCH (06:15)
--- NOTE | 2020-03-24 07:05 | NUR ---
RCD PT AT BED PT IS ALERT AND ORIENTED PT RESTING ON BED IV PATENT BED LOW AND LOCKED CALL LIGHT IN REACH
[2020-03-24] MEDS ORDERED: CRESTOR10 MG PO (07:08)
--- NOTE | 2020-03-24 07:10 | NUR ---
REPORT GIVEN TO [facility] AAOX3. RESTING IN BED. BED LOCKED AND IN LOW POSITION. CALL LIGHT WITHIN REACH. NO SIGNS OF IV INFILTRATION. Addendum: 03/24/20 at 0712 by Jane Chow RN PLEASE INCLUDE JALOUSIES INSTALLER BUTTON WITHIN REACH.
[2020-03-24] MEDS: PANTOPRAZOLE SOD 40 MG TABEC PO SCH ×2 (07:30→16:30)
[2020-03-24] MEDS: LOSARTAN POTASSIUM 100 MG TAB PO SCH (09:00)
[2020-03-24] MEDS: OXCARBAZEPINE 300 MG TAB PO SCH (09:00)
[2020-03-24] MEDS: HYDROCHLOROTHIAZIDE 25 MG TAB PO SCH (09:00)
[2020-03-24] MEDS: LORAZEPAM 1 MG TAB PO SCH ×2 (09:00→17:00)
[2020-03-24] MEDS: NIFEDIPINE CR 30 MG TAB PO SCH ×2 (09:00→17:00)
[2020-03-24] MEDS ORDERED: NON-FORMULARY MEDICATION (Losartan/Hydrochlorothiazide (Losartan-Hctz 100-25 Mg Tab) 1 TAB PO SCH (09:00)
[2020-03-24] MEDS ORDERED: OXCARBAZEPINE 300 MG PO SCH (09:00)
[2020-03-24] MEDS: HYDROXYZINE HCL 10 MG TAB PO SCH (09:00)
[2020-03-24] MEDS: DEXTROSE 5%/0.45% SOD CHL 1,000 ML IV SCH ×3 (10:00→16:30)
[2020-03-24] MEDS: MORPHINE SULFATE 1 MG/ML 30ML PCA IV PRN (11:32)
[2020-03-24] MEDS ORDERED: MORPHINE SULFATE 1 MG/ML 30ML PCA IV PRN (11:45)
[2020-03-24] MEDS: KETOROLAC TROMETHAMINE 30 MG/ML VIAL IV PRN ×2 (15:33→21:36)
--- NOTE | 2020-03-24 18:53 | NUR ---
PT RESTING ON BED BED SIDE REPORT GIVEN TO ONCOMING NURSE
[2020-03-24] MEDS ORDERED: MIDAZOLAM HCL 2 MG/2 ML VIAL ONE (19:51)
[2020-03-24] MEDS ORDERED: SIMVASTATIN 40 MG TAB PO SCH (21:00)
[2020-03-24] MEDS ORDERED: OXCARBAZEPINE 300 MG TAB PO SCH (21:00)
[2020-03-24] MEDS: METOPROLOL SUCCINATE 50 MG TAB XL PO SCH (21:06)
[2020-03-24] MEDS: TRAZODONE HCL 50 MG TAB PO SCH (21:06)
--- NOTE | 2020-03-24 21:46 | NUR ---
SPOKE TO DR. ALDRIDGE AT THIS TIME REGARDING PAIN MED. 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
[2020-03-24] MEDS ORDERED: HYDROCODONE/APAP 5MG-325MG TAB PO PRN (22:00)
[2020-03-25 00:22] VITALS: BP 117/58
[2020-03-25] MEDS: DEXTROSE 5%/0.45% SOD CHL 1,000 ML IV SCH (02:30)
[2020-03-25 04:51] VITALS: BP 139/62
--- NOTE | 2020-03-25 07:00 | NUR ---
RCD PT AT BED PT IS ALERT AND ORIENTED PT RESTING ON BED IV PATENT BED LOW AND LOCKED CALL LIGHT IN REACH
[2020-03-25] MEDS: PANTOPRAZOLE SOD 40 MG TABEC PO SCH (07:30)
[2020-03-25 08:43] VITALS: BP 141/66
[2020-03-25] MEDS: LORAZEPAM 1 MG TAB PO SCH (09:00)
[2020-03-25] MEDS: OXCARBAZEPINE 300 MG TAB PO SCH (09:00)
[2020-03-25] MEDS: NIFEDIPINE CR 30 MG TAB PO SCH (09:00)
[2020-03-25] MEDS: LOSARTAN POTASSIUM 100 MG TAB PO SCH (09:00)
[2020-03-25] MEDS: HYDROCHLOROTHIAZIDE 25 MG TAB PO SCH (09:00)
[2020-03-25] MEDS: HYDROXYZINE HCL 10 MG TAB PO SCH (09:00)
[2020-03-25] MEDS ORDERED: NORCO 5-325 TA1 EACH PO (09:10)
--- NOTE | 2020-03-25 09:45 | NUR ---
EDUCATE THE PATIENT HOW TO EMPTY THE RONALD DRAIN AND ALSO SHOWED THE PT HOW TO DO THAT PT AND SAID THEY UNDERSTOOD
--- NOTE | 2020-03-25 10:04 | NUR ---
PATIENT WENT HOME IN SAFE CONDITION WITH HER
== END 2020-03-25 10:04 | disposition home or self-care (01) | DRG 355 ==
LOC: OR 08:47 → PACU V 10:53 → MED/SURG 15:34
PROVIDERS: ADMIT Surgery; ATTEND Surgery
PROC: 0WUF0JZ Supplement Abdominal Wall with Synthetic Substitute, Open Approach (ICD-10-PCS; principal; 2020-03-23 10:30)
DX: K43.2 Incisional hernia without obstruction or gangrene (principal); I10 Essential (primary) hypertension; K21.9 Gastro-esophageal reflux disease without esophagitis; F41.9 Anxiety disorder, unspecified; E78.00 Pure hypercholesterolemia, unspecified
CPT/HCPCS: 36415; 71046; 80048; 85025; 87635; 93005; C1781; J0690; J1100; J1170; J1885; J2001; J2175; J2250; J2270; J2405; J2550; J2765; J3410

== ENCOUNTER → 2020-06-09 | Outpatient (CLI) | payer MEDICARE ==
[~2020-06-09] MED LIST changes: +CRESTOR10 MG PO; +DIATRIZOATE MEGL/DIATRIZOA SOD 30 ML BTL PO ONE; +IOPAMIDOL 370 MG/ML 200 ML INFUS..BTL INJ ONE; +NORCO 5-325 TA1 EACH PO; +SODIUM CHLORIDE 0.9% 50ML 50 ML ONE
[2020-06-09 10:14] LABS: BLOOD UREA NITROGEN 19 mg/dL (7-26); BUN/CREATININE RATIO 25 (6-25); CREATININE, SERUM 0.77 mg/dL (0.57-1.11); EST GLOMERULAR FILTRATION RATE > 60 ML/MIN (60-)
--- NOTE | 2020-06-09 11:01 | Diagnostic Imaging Report ---
EXAM: CT Abdomen and Pelvis WITH intravenous contrast INDICATION: Abdominal COMPARISON: None. TECHNIQUE: Abdomen and pelvis were scanned utilizing a multidetector helical scanner from the lung base to the pubic symphysis after administration of IV contrast. Coronal and sagittal reformations were obtained. Routine protocol was performed. Scan was performed during portal venous phase. IV CONTRAST: 100mL of Isovue 370 ORAL CONTRAST: Gastrografin RADIATION DOSE: Total DLP: 163 mGy*cm Dose modulation, iterative reconstruction, and/or weight based adjustment of the mA/kV was utilized to reduce the radiation dose to as low as reasonably achievable. FINDINGS: LOWER THORAX: Normal. HEPATOBILIARY: Diffuse hepatic steatosis. No focal liver lesion. Status post cholecystectomy. Mild left intrahepatic and common bile duct dilation may be related to reservoir effect. SPLEEN: No splenomegaly. PANCREAS: No focal masses or ductal dilatation. ADRENALS: No adrenal nodules. KIDNEYS/URETERS: No hydronephrosis, stones, or solid mass lesions. PELVIC ORGANS/BLADDER: Status post hysterectomy. PERITONEUM / RETROPERITONEUM: No free air or fluid. LYMPH NODES: No lymphadenopathy. VESSELS: Mild scattered atherosclerotic calcifications of the nonaneurysmal abdominal aorta and major branches. GI TRACT: Diverticulosis without CT evidence of diverticulitis. No abnormal bowel thickening. No bowel obstruction. Status post appendectomy. BONES AND SOFT TISSUES: No acute osseous injury. No suspicious lytic or blastic lesions. IMPRESSION: No acute findings in the abdomen or pelvis. Diffuse hepatic steatosis. Signed by: Johanne Gomez MD on 06/09/2020 10:58 AM
== END ==
LOC: CT 08:41
PROVIDERS: ATTEND Surgery
DX: R10.9 Unspecified abdominal pain (principal)
CPT/HCPCS: 36415; 74177; 82565; 84520; Q9967

== ENCOUNTER → 2025-01-17 | Outpatient (REF) | payer MEDICARE ==
[~2025-01-17] MED LIST changes: -DIATRIZOATE MEGL/DIATRIZOA SOD 30 ML BTL PO ONE; -IOPAMIDOL 370 MG/ML 200 ML INFUS..BTL INJ ONE; -SODIUM CHLORIDE 0.9% 50ML 50 ML ONE
== END ==
LOC: DX 08:53
PROVIDERS: ATTEND Internal Medicine Gastroenterology
DX: K22.70 Barrett's esophagus without dysplasia (principal); K44.9 Diaphragmatic hernia without obstruction or gangrene
CPT/HCPCS: 74240